=== PATIENT | male | born 1975 | race Caucasian/White ===

== ENCOUNTER 2021-05-02 00:35 | Day surgery (SDC) | payer BC, SELFPAY ==
[2021-04-17 13:28] VITALS: BMI 37.7
[2021-05-02 09:26] VITALS: BP 153/97; PULSE 95; RESP 18; TEMP 36; O2SAT 97; BMI 39.2
[2021-05-02] MEDS: LACTATED RINGERS 1,000 ML 150 ML IV CONT (09:48)
--- NOTE | 2021-05-02 09:48 | P.PNAN_ITS ---
Anes - Initial Pre Proc Eval Procedure: Operation Date: 05/02/21 11:00 Proposed Procedures p Screening Colonoscopy - Ruiz Cherry MD Date/Time: 05/02/21 09:48 Surgeon: Ruiz Cherry MD Pre Op Diagnosis: neoplasm screening Patient Data Age: 45 Gender: M Height: 1.68 m Weight: 110.2 kg Last Vital Signs Temp 36.0 C L 05/02/21 09:26 Pulse 95 05/02/21 09:26 Resp 18 05/02/21 09:26 BP 153/97 H 05/02/21 09:26 Pulse Ox 97 05/02/21 09:26 Allergies Allergy/AdvReac Type Severity Reaction Status Date / Time erythromycin base Allergy Unknown Gastrointestinal Verified 05/02/21 09:40 Upset Home Medications Medication Instructions Recorded Confirmed Type albuterol [Ventolin] 90 mcg INHALATION PRN PRN 04/17/21 05/02/21 History fluticasone propion-salmeterol 1 inh INHALATION BID 04/17/21 05/02/21 History [Wixela Inhub] montelukast 10 mg PO DAILY 04/17/21 05/02/21 History paroxetine HCl 20 mg PO DAILY 04/17/21 05/02/21 History trazodone 50 mg PO DAILY 04/17/21 05/02/21 History Patient hx anesthesia problems: none Family hx anesthesia problems: none Results Review: All pre-operative results and documents have been reviewed as part of the pre-operative evaluation. [facility] Past Medical History Medical History (Updated 05/02/21 @ 09:49 by Rajat Holt MD) Anxiety Asthma Obesity Social History Social History Smoking status: Former smoker Alcohol intake: never Substance use: never Substance use type: does not use Living arrangements: with family Spiritual care concerns: No Anes - Eval Final PreProcedure Day of Procedure 05/02/21 09:48 Patient weight: overweight Heart: regular rate and rhythm Lungs: clear to auscultation and normal air movement Airway: Mallampati scale class II Neurological: alert and oriented Last oral intake: >/= 8 hours ASA classification: II Emergent: no Anesthetic plan: proceed Anesthesia type and monitoring: general GIVS Results Review: All pre-operative results and documents have been reviewed as part of the pre-operative evaluation. Informed Consent: The patient's anesthetic plan and its attendant risks and benefits were discussed with the patient/family/POA. Questions were solicited and answers provided to the satisfaction of the patient/family/POA.
--- NOTE | 2021-05-02 10:20 | PM.HPGS ---
History of Present Illness History of Present Illness Consent: Risks, benefits, and alternatives have been discussed and questions answered. Patient agrees to proceed with procedure. Chief complaint: neoplasm screening Narrative: Steve Shafer is a 45 year old male here for first screening colonoscopy Review of Systems Constitutional: Constitutional: Denies headache(s) and Denies weakness Eyes: Eyes: Denies blurry vision ENT: Reports Normal hearing present, Denies headache(s) and Denies neck pain Cardiovascular: Cardiovascular: Denies chest pain and Denies dyspnea Respiratory: Respiratory: Denies dyspnea Gastrointestinal: Gastrointestinal: Reports no additional gastrointestinal complaints Genitourinary: Genitourinary: Denies dysuria Musculoskeletal: Musculoskeletal: Denies neck pain Integumentary/Breasts: Skin/Breast: Denies dry skin Neurologic: Reports Normal hearing present, Denies headache(s) and Denies weakness Psychiatric: Psychiatric: Denies anxiety Endocrine: Endocrine: Denies change in body appearance Hematologic/Lymphatic: Hematologic/Lymphatic: Denies easy bleeding Allergic/Immunologic: Allergic/Immunologic: Denies urticaria PMF Past Medical History Medical History (Updated 05/02/21 @ 10:20 by Ruiz Cherry MD) Anxiety Asthma Colon cancer screening Obesity Social History Social History Smoking status: Former smoker Alcohol intake: never Substance use: never Substance use type: does not use Living arrangements: with family Spiritual care concerns: No Meds Home Medications and Allergies Home Medications Medication Instructions Recorded Confirmed Type albuterol [Ventolin] 90 mcg INHALATION PRN PRN 04/17/21 05/02/21 History fluticasone propion-salmeterol 1 inh INHALATION BID 04/17/21 05/02/21 History [Wixela Inhub] montelukast 10 mg PO DAILY 04/17/21 05/02/21 History paroxetine HCl 20 mg PO DAILY 04/17/21 05/02/21 History trazodone 50 mg PO DAILY 04/17/21 05/02/21 History Allergies Allergy/AdvReac Type Severity Reaction Status Date / Time erythromycin base Allergy Unknown Gastrointestinal Verified 05/02/21 09:40 Upset Vital Signs Vital Signs - 24 hr 05/02/21 09:26 Temperature 96.8 F L Pulse Rate 95 Respiratory Rate 18 Blood Pressure 153/97 H Pulse Oximetry 97 Exam Const: General: comfortable and no acute distress HENMT: General nose exam: Normal nares present Eyes: General: appearance normal, both eyes and all related structures Neck: Neck: no JVD Resp: Auscultation: clear to auscultation bilaterally Cardio: Rate: regular rate Rhythm: regular rhythm GI: Inspection: non-distended GI Palp: Yes Soft to palpation Skin: General skin exam: normal color Neuro: General: gait normal Speech: normal speech Extrem: General: normal to inspection Psych: Mental Status: mental status grossly normal Assessment and Plan Assessment and plan (1) Colon cancer screening: Code(s): Z12.11 - Encounter for screening for malignant neoplasm of colon Status: Acute Assessment and Plan: colonoscopy
[2021-05-02 10:42] VITALS: BP 125/85; PULSE 89; RESP 14; O2SAT 97
[2021-05-02 10:52] VITALS: BP 125/79; PULSE 88; RESP 24; O2SAT 97
[2021-05-02 11:02] VITALS: BP 133/89; PULSE 75; RESP 24; O2SAT 97
== END 2021-05-02 11:12 | disposition home or self-care (01) ==
PROVIDERS: PCP Family Medicine; Visit Provider Internal Medicine Gastroenterology
PROC: 0DJD8ZZ Inspection of Lower Intestinal Tract, Via Natural or Artificial Opening Endoscopic (ICD-10-PCS; CPT 45378; principal; 2021-05-02 11:00)
DX: Z12.11 Encounter for screening for malignant neoplasm of colon (principal); K63.5 Polyp of colon; K57.30 Diverticulosis of large intestine without perforation or abscess without bleeding; K64.8 Other hemorrhoids; J45.909 Unspecified asthma, uncomplicated; F41.9 Anxiety disorder, unspecified; E66.9 Obesity, unspecified; Z68.39 Body mass index [BMI] 39.0-39.9, adult; Z79.51 Long term (current) use of inhaled steroids; Z87.891 Personal history of nicotine dependence
CPT/HCPCS: 45385; 88305; J2001; J2704; J7120

== ENCOUNTER 2021-09-26 08:12 | Outpatient (CLI) | payer BC, SELFPAY ==
--- NOTE | ~2021-09-26 | CT_ITS ---
EXAMINATION: CT abdomen pelvis w con EXAM DATE: 09/26/2021 08:29 INDICATION: K42.9 - Umbilical hernia without obstruction or gangrene. TECHNIQUE: Spiral CT of the abdomen and pelvis was performed following intravenous injection of 100 m L Omnipaque 350. Axial, coronal and sagittal images of the abdomen and pelvis were reviewed. The do se-length product (DLP) for this examination was 1262.41 mGy-cm. The exposure was tailored according to patient size (auto mA exposure control), and iterative reconstruction (ASIR) was used as addition al dose reduction technique. There is no prior study for comparison. FINDINGS: The liver, spleen, adrenal glands and pancreas are unremarkable. Gallbladder is unremarkab le. No biliary obstruction. Portal and splenic veins are patent. Kidneys enhance symmetrically. T here is no hydronephrosis. The prostate is unremarkable. The bladder is unremarkable. There is no retroperitoneal or pelvic lymphadenopathy. Small umbilical fat-containing hernia. The appendix is normal. The stomach and small bowel are unremarkable. There is expected amount of c olonic stool. No free intraperitoneal gas. The heart is normal in size. There are no pericardial or pleural effusions. The lung bases are unremarkable. There are no osteoblastic or osteolytic les ions identified. IMPRESSION: 1. Small umbilical fat-containing hernia. Reviewed, dictated and finalized at location G.
== END 2021-09-26 08:13 | disposition home or self-care (01) ==
LOC: ANHIMG 08:14
PROVIDERS: PCP Family Medicine; Visit Provider Surgery
DX: K42.9 Umbilical hernia without obstruction or gangrene (principal); R22.2 Localized swelling, mass and lump, trunk
CPT/HCPCS: 74177; Q9967

== ENCOUNTER 2022-06-17 18:30 | Emergency (ER) | payer BC, SELFPAY ==
--- NOTE | ~2022-06-17 | XR_ITS ---
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 Hx asthma Comparison: 11/10/2011. RESULT: Lines, tubes, and devices: None. Lungs and pleura: Clear. Cardiomediastinal silhouette: Stable. Other: No acute osseous or upper abdominal finding. IMPRESSION: No acute cardiopulmonary process. Reviewed, dictated and finalized at location K. RAW STOCK BLOWER FEEDER
[2022-06-17 18:33] VITALS: BP 152/109; PULSE 116; RESP 16; TEMP 36.8; O2SAT 97
[2022-06-17 18:47] LABS: Glucose Point of Care 110 mg/dl (65-105)
--- NOTE | 2022-06-17 19:04 | ED.GENADULT ---
HPI - General Adult General Chief complaint: Unspecified Stated complaint: dizziness, confusion, shaky for 2 months Time Seen by Provider: 06/17/22 18:55 History of Present Illness HPI narrative: 46-year-old male here for evaluation of multiple medical complaints. First, patient states he is hypoglycemic and he has been shaking for the past 4 years. Blood sugar 116 in triage. States that he has had little appetite for the past 4 years due to nausea. Has been worked up by his PCP for these issues and has not found clear etiology for symptoms. Went up on his antidepressant last week. Has been referred to cardiology and saw garage door technician who did not think that his symptoms are related to cardiac issue. Additionally notes a nonproductive cough for the past 2 months. No chest pain, shortness of breath, fevers or chills. Related Data Home Medications Medication Instructions Recorded Confirmed albuterol 90 mcg/actuation aerosol 90 mcg inhalation PRN PRN Dyspnea 04/17/21 09/20/21 inhaler montelukast 10 mg tablet 10 mg PO DAILY 04/17/21 09/20/21 paroxetine HCl 20 mg tablet 20 mg PO DAILY 04/17/21 09/20/21 famotidine 40 mg tablet 40 mg PO DAILY 09/15/21 09/20/21 mometasone-formoterol HFA 200 2 puff inhalation BID 09/15/21 09/20/21 mcg-5 mcg/actuation aerosol inhaler (Dulera) Allergies Allergy/AdvReac Type Severity Reaction Status Date / Time erythromycin base Allergy Unknown Gastrointestinal Verified 09/20/21 09:15 Upset Review of Systems Review of Systems: Gen: Reports shakiness. Denies fevers or chills Eyes: Denies eye pain or visual change ENT: Denies congestion Respiratory: Reports cough. Denies shortness of breath CV: Denies chest pain or palpitations GI: Denies abdominal pain nausea, emesis or diarrhea denies burning, urgency, frequency or hematuria Musculoskeletal: Denies back pain or muscle pain Neuro: Denies numbness, tingling, weakness or focal weakness Skin: Denies rash Except as documented, all other systems reviewed and negative PMFSH Past Medical History Medical History Anxiety Asthma Colon cancer screening Depression Obesity Surgical History Surgical History Inguinal hernia 2005 Family History Family History Other Bladder cancer Cancer Cerebrovascular accident Diabetes mellitus Heart disease Hypertension Social History Social History Smoking packs per day: 1 Smoking cigarettes per day: 20.0 Years smoked: 20 Smoking pack-years: 20.00 Smoking status: Former smoker Tobacco type: cigarettes Alcohol intake: never Substance use: never Substance use type: does not use Additional occupation/education comments: [employer] care concerns: No Exam Narrative: APPEARANCE: No shaking noted. Well appearing, no pain in distress, well-nourished. Head: Normocephalic and atraumatic. EYES: PERRLA/EOMI, conjunctivae clear NOSE: No nasal drainage EARS: External ear normal in appearance THROAT: Oropharynx is clear. Mucous membranes are moist. NECK: Supple. No adenopathy, no masses. RESPIRATORY: Airway patent, respirations nonlabored. Clear to auscultation bilaterally, no rales, rhonchi, wheezing. CARDIOVASCULAR: Regular rate and rhythm without murmurs, rubs, or gallops. ABDOMINAL: No abdominal tenderness to palpation. Normoactive bowel sounds. Soft, nondistended. No rebound tenderness or guarding. MUSCULOSKELETAL: Extremities are warm and well-perfused. Moves all extremities well. No edema. NEURO: Normal speech. No focal neurologic deficits. SKIN: Skin is warm and dry. No rashes. PSYCHIATRIC: Normal affect/mood. Course Vital Signs Vital signs: Vital Signs Temperature 98.3 F 06/17/22 18:33 Pulse Rate 11
[2022-06-17] MEDS: LORazepam (*CRX) 0.5 MG TABLET 0.25 MG PO (19:08)
[2022-06-17 19:30] VITALS: BP 144/89; PULSE 88; RESP 16; TEMP 36.8; O2SAT 97
[2022-06-17 20:04] VITALS: TEMP 36.7
== END 2022-06-17 20:20 | disposition home or self-care (01) ==
PROVIDERS: Emergency Provider Emergency Medicine; PCP Family Medicine
DX: F41.9 Anxiety disorder, unspecified (principal); F32.9 Major depressive disorder, single episode, unspecified; R05.9 Cough, unspecified; Z87.891 Personal history of nicotine dependence
CPT/HCPCS: 71046; 82948; 99283; A9270

== ENCOUNTER 2023-08-17 23:19 | Emergency (ER) | payer BC, SELFPAY ==
--- NOTE | ~2023-08-17 | XR_ITS ---
EXAMINATION: XR chest 1V portable DATE: 08/18/2023 03:19 INDICATION: Dyspnea. TECHNIQUE: A single frontal view of the chest was obtained. COMPARISON: Chest 2 views 06/17/2022, CT abdomen and pelvis 09/26/2021 FINDINGS: There is no pneumonia, pleural effusion, or pneumothorax. The heart size is normal. IMPRESSION: 1. No acute cardiopulmonary disease. Reviewed, dictated and finalized at location A. ILE TECH
[2023-08-17 23:32] VITALS: BP 142/92; PULSE 105; RESP 24; TEMP 36.7; O2SAT 97
[2023-08-18] VITALS (28 sets, daily range): BP systolic 123–144; BP diastolic 63–99; PULSE 76–96; RESP 12–20; O2SAT 94–100
--- NOTE | 2023-08-18 02:37 | ECG_ITS ---
Measurements Intervals [place] Rate: 70 P: 58 SC: 151 QRS: 52 QRSD: 89 T: 72 QT: 377 QTc: 408 Interpretive Statements SINUS RHYTHM NONSPECIFIC T-WAVE ABNORMALITY ABNORMAL ECG NO PREVIOUS ECG AVAILABLE FOR COMPARISON Electronically Signed On 08-18-2023 8:21:52 INSTRUCTOR TAP DANCING by Johnny Rose M.D.
[2023-08-18] MEDS: SODIUM CHLORIDE 0.9% IV 2,000 ML 999 ML IV CONT (02:59)
[2023-08-18] MEDS: MAGNESIUM SULF 2 GM/WATER 50ML 2 GM/50 ML BAG IVPB (03:00)
[2023-08-18] MEDS: IPRATROPIUM BR 0.02% INH SOLN 0.5 MG/2.5 ML VIAL 1 MG INHALATION (03:02)
[2023-08-18] MEDS: ALBUTEROL SULFATE NEB 2.5 MG/3 ML INH 10 MG INHALATION (03:02)
--- NOTE | 2023-08-18 03:52 | ED.GENADULT ---
HPI - General Adult General Chief complaint: Shortness of Breath/Dyspnea Stated complaint: asthma Time Seen by Provider: 08/18/23 02:07 History of Present Illness HPI narrative: This is a 47-year-old male with history of asthma presenting with shortness of breath. 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 Then earlier today he was helping his parents move in a eliud house. He has had progressively worse tightness in his chest. Releases to his asthma. He has been taking his inhalers with no relief. No other complaints. Related Data Home Medications Medication Instructions Recorded Confirmed albuterol 90 mcg/actuation aerosol 90 mcg inhalation PRN PRN Dyspnea 04/17/21 09/20/21 inhaler montelukast 10 mg tablet 10 mg PO DAILY 04/17/21 09/20/21 paroxetine HCl 20 mg tablet 20 mg PO DAILY 04/17/21 09/20/21 famotidine 40 mg tablet 40 mg PO DAILY 09/15/21 09/20/21 mometasone-formoterol HFA 200 2 puff inhalation BID 09/15/21 09/20/21 mcg-5 mcg/actuation aerosol inhaler (Dulera) Allergies Allergy/AdvReac Type Severity Reaction Status Date / Time erythromycin base Allergy Unknown Gastrointestinal Verified 09/20/21 09:15 Upset PMFSH Past Medical History Medical History Anxiety Asthma Colon cancer screening Depression Obesity Surgical History Surgical History Inguinal hernia 2005 Family History Family History Other Bladder cancer Cancer Cerebrovascular accident Diabetes mellitus Heart disease Hypertension Social History Social History Smoking packs per day: 1 Smoking cigarettes per day: 20.0 Years smoked: 20 Smoking pack-years: 20.00 Smoking status: Former smoker Tobacco type: cigarettes Alcohol intake: never Substance use: never Substance use type: does not use Living arrangements: alone Occupation/Education: occupation Additional occupation/education comments: [employer] Spiritual care concerns: No Exam Narrative: APPEARANCE: No apparent distress. Head: atraumatic. EYES: EOMI, NOSE: Atraumatic NECK: Trachea midline RESPIRATORY: speaking in full sentences, mildly decreased air flow in all yañez CARDIOVASCULAR: RRR, ABDOMINAL: Non-distended MUSCULOSKELETAl: No obvious deformities NEURO: Alert. Moving 4/4 extremities SKIN:: Warm, dry. Normal color PSYCHIATRIC: Normal affect Course Vital Signs Vital signs: Vital Signs Temperature 98.1 F 08/17/23 23:32 Pulse Rate 105 H 08/17/23 23:32 Respiratory Rate 24 H 08/17/23 23:32 Blood Pressure 142/92 H 08/17/23 23:32 Pulse Oximetry 97 08/17/23 23:32 Oxygen Delivery Room Air 08/17/23 23:32 Temperature 98.1 F 08/17/23 23:32 Pulse Rate 86 08/18/23 03:34 Respiratory Rate 16 08/18/23 03:31 Blood Pressure 136/82 08/18/23 03:34 Pulse Oximetry 97 08/18/23 03:34 Oxygen Delivery Room Air 08/18/23 02:50 Medical Decision Making [facility] Narrative Medical decision making narrative: -Course: 47-year-old male presenting asthma exacerbation. Treated with DuoNeb, steroids, magnesium. Improved. Patient discharged with return precautions. -DDX includes but is not limited to: Asthma exacerbation, environmental -Co-morbidities complicating care: asthma, anxiety -Independent interpretation of studies: chest x-ray normal. Independent EKG interpretation: Rhythm [sinus], Rate [70], [place] -[normal], [place] -[normal], QRS [narrow], QTC [normal], T waves -[negative for concerning inversions], ST Segments - [Negative for concerning elevations] Final interpretations: [Normal Sinus Rhythm] -Interventions: 1 hour DuoNeb treatment, L normal saline, 2 g magnesium, 10 mg dexamethasone -Shared decision making / Disposition: discharged Vital Signs
--- NOTE | 2023-08-18 04:41 | PC.NURSE ---
1,600/2,000 ml infused for NaCl infusion with a waste of 400 ml. Patient requested discharge papers stating his ride was outside waiting for him.
== END 2023-08-18 04:45 | disposition home or self-care (01) ==
LOC: ANHED 08-18 04:11
PROVIDERS: Emergency Provider Emergency Medicine; PCP Family Medicine
DX: J45.909 Unspecified asthma, uncomplicated (principal); F41.9 Anxiety disorder, unspecified; F32.A Depression, unspecified; Z87.891 Personal history of nicotine dependence
CPT/HCPCS: 71045; 93005; 94640; 96361; 96365; 96372; 99284; J1100; J3475; J7030

== ENCOUNTER 2023-09-12 06:48 | Emergency (ER) | payer BC, SELFPAY ==
[2023-09-12] VITALS (12 sets, daily range): BP systolic 114–141; BP diastolic 66–91; PULSE 85–121; RESP 13–34; TEMP 36.6; O2SAT 93–100
--- NOTE | ~2023-09-12 | XR_ITS ---
Portable chest x-ray Comparison: 08/18/2023 Clinical History: Shortness of breath Findings: Lungs are clear, without focal consolidation or pleural effusion. Cardiomediastinal silho uette is stable. Bones and soft tissues are unremarkable. Impression: Normal chest. Reviewed, dictated and finalized at location . NG PRESSMAN Impression: Normal chest.
--- NOTE | 2023-09-12 06:53 | ECG_ITS ---
Measurements Intervals [place] Rate: 99 P: 58 MO: 151 QRS: 38 QRSD: 89 T: 53 QT: 335 QTc: 432 Interpretive Statements SINUS RHYTHM NONSPECIFIC ST-T WAVE ABNORMALITY- LATERAL LEADS BORDERLINE ECG COMPARED TO ECG 08/18/2023 02:50:59 NO SIGNIFICANT CHANGES Electronically Signed On 09-12-2023 10:38:04 COMPUTATIONAL LINGUIST by Hernandez Walton D.O.
[2023-09-12 07:10] LABS: Basophils Percent Auto 0.3 % (0.2-1.2); Eosinophils Absolute Auto 0.2 K/mm3 (0-0.3); Eosinophils Percent Auto 1.5 % (0-4.4); Hematocrit 48.3 % (42.0-52.0); Hemoglobin 16.2 g/dL (14.0-18.0); Immature Granulocyte Absolute 0.03 K/mm3 (0.00-0.031); Immature Granulocyte Percent A 0.3 % (0-0.5); Lymphocytes Absolute Auto 1.96 K/mm3 (0.9-3.2); Lymphocytes Percent Auto 19.9 % (18.3-44.2); Mean Corpuscular HGB Conc 33.5 g/dl (32-36); Mean Corpuscular Hemoglobin 27.5 pg (26-34); Mean Corpuscular Volume 81.9 fl (80-100); Mean Platelet Volume 9.5 fl (7.4-10.4); Monocytes Absolute Auto 0.7 K/mm3 (0.1-0.6); Monocytes Percent Auto 6.9 % (2.6-8.5); Neutrophils Percent Auto 71.1 % (45.5-73.1); Platelet Count Result 210 k/mm3 (150-375); Red Cell Distribution Width 13.5 % (11.5-14.5); White Blood Count 9.9 K/mm3 (4.5-10.0)
--- NOTE | 2023-09-12 07:11 | ED.ASTHMA ---
HPI - Asthma General Chief Complaint: Asthma Stated Complaint: dyspnea Time Seen by Provider: 09/12/23 06:58 History of Present Illness HPI Narrative: Patient is a 47-year-old male with history of asthma, anxiety here with shortness of breath and chest pain. Patient states yesterday he had the appointment with his primary care doctor and is feeling quite well. Overnight last night he began having significant shortness of breath. He notes that it feels like his chest is quite tight and has difficulty moving air. This feels very similar to prior asthma exacerbations in the past. He notes he took 4 of his nebulizer treatments at home as well as his morning daily inhalers without relief of his symptoms which prompted him to come into the emergency department. Of note about 1 month ago he was seen here in this department for similar, treated with a course of steroids and was discharged home feeling quite well. He did note that he had improving symptoms in between each exacerbation. He denies any fever or chills. Denies any increased sputum production. He has previously followed with a local bench machine operator but is being transferred to a new bench machine operator due to change in his insurance coverage at his prior clinic. No known sick contacts. No prior history of PE or DVT. No prior cardiac history. No recent travel, long car rides, calf pain, leg swelling. Related Data Home Medications Medication Instructions Recorded Confirmed albuterol 90 mcg/actuation aerosol 90 mcg inhalation PRN PRN Dyspnea 04/17/21 09/20/21 inhaler montelukast 10 mg tablet 10 mg PO DAILY 04/17/21 09/20/21 paroxetine HCl 20 mg tablet 20 mg PO DAILY 04/17/21 09/20/21 famotidine 40 mg tablet 40 mg PO DAILY 09/15/21 09/20/21 mometasone-formoterol HFA 200 2 puff inhalation BID 09/15/21 09/20/21 mcg-5 mcg/actuation aerosol inhaler (Dulera) Allergies Allergy/AdvReac Type Severity Reaction Status Date / Time erythromycin base Allergy Unknown Gastrointestinal Verified 09/20/21 09:15 Upset Review of Systems Review of Systems: All systems reviewed & are unremarkable except as noted in HPI and below PMFSH Past Medical History Medical History Anxiety Asthma Colon cancer screening Depression Obesity Surgical History Surgical History Inguinal hernia 2005 Family History Family History Other Bladder cancer Cancer Cerebrovascular accident Diabetes mellitus Heart disease Hypertension Social History Social History Smoking packs per day: 1 Smoking cigarettes per day: 20.0 Years smoked: 20 Smoking pack-years: 20.00 Smoking status: Former smoker Tobacco type: cigarettes Alcohol intake: never Substance use: never Substance use type: does not use Living arrangements: alone Occupation/Education: occupation Additional occupation/education comments: [employer] care concerns: No Exam Narrative: GENERAL: Well-appearing, well-nourished, and in no acute distress. HEAD: Normocephalic, atraumatic. EYES: PERRLA and EOMI. ENT: Nares clear. Mucous membranes moist. NECK: Supple. CHEST: Shallow respirations, decreased air movement bilaterally, 4-5 word dyspnea. Faint wheeze present bilaterally. HEART: Regular rate and rhythm. Normal peripheral pulses. ABDOMEN: Soft, nontender, nondistended. EXTREMITIES: Normal range of motion. No edema. No calf tenderness. SKIN: Warm, dry, no rash. NEURO: No focal deficits. Alert and oriented x3. PSYCH: Normal mood and affect. Course Course Emergency Course: Chart review performed. Patient here with chest tightness and difficulty breathing x2 months, worse this morning. Reportedly took albuterol nebulizer, Dulera, albuterol rescue inhaler 4 times and Sy
[2023-09-12 07:19] LABS: Alanine Aminotransferase 21 U/L (6-50); Albumin Level 4.7 g/dL (3.5-5.1); Alkaline Phosphatase 119 U/L (38-126); Anion Gap 8 mmol/L (8-16); Aspartate Amino Transferase 26 U/L (17-59); Blood Urea Nitrogen 9 mg/dL (9-20); Calcium 9.2 mg/dL (8.4-10.2); Carbon Dioxide 23 mmol/L (22-30); Chloride 105 mmol/L (98-107); Estimated CRCL calculation 84 ml/min; Estimated Glomerular Filt Rate > 60; Glucose 113 mg/dL (65-110); Potassium 3.5 mmol/L (3.4-5.0); Sodium 136 mmol/L (137-145)
--- NOTE | 2023-09-12 07:29 | PC.NURSE ---
Bedside report to AUSTEN Crum.
[2023-09-12 07:46] LABS: Influenza A QL RT-PCR Negative (Negative); Influenza B QL RT-PCR Negative (Negative); RSV RNA, RT-PCR Negative (Negative); SARS-CoV-2 RNA PCR Negative (Negative)
[2023-09-12] MEDS: SODIUM CHLORIDE 0.9% IV 1,000 ML 999 ML IV CONT (07:55)
[2023-09-12] MEDS: methylPREDNISolone SOD SUCC 125 MG VIAL IV PUSH (07:55)
[2023-09-12] MEDS: IPRATROPIUM BR 0.02% INH SOLN 0.5 MG/2.5 ML VIAL 1.5 MG INHALATION (08:03)
[2023-09-12] MEDS: ALBUTEROL SULFATE NEB 2.5 MG/3 ML INH 15 MG INHALATION (08:03)
[2023-09-12] MEDS: MAGNESIUM SULF 2 GM/WATER 50ML 2 GM/50 ML BAG IVPB (09:24)
--- NOTE | 2023-09-12 09:35 | ECG_ITS ---
Measurements Intervals [place] Rate: 114 P: 72 DC: 150 QRS: 69 QRSD: 83 T: 17 QT: 312 QTc: 431 Interpretive Statements SINUS TACHYCARDIA DELAYED PRECORDIAL R/S TRANSITION NONSPECIFIC ST-T WAVE ABNORMALITY- INF/LAT LEADS ABNORMAL ECG COMPARED TO ECG 08/18/2023 02:50:59 SINUS TACHYCARDIA NOW PRESENT Electronically Signed On 09-13-2023 14:42:44 TYPE SOLDERING MACHINE TENDER by Hernandez Walton D.O.
[2023-09-12 09:45] LABS: NT Pro B Type Natriuretic Pept 36 pg/mL (19.9-100); Troponin I < 0.012 ng/mL (0.000-0.034)
[2023-09-12 10:56] LABS: D Dimer < 0.27 ug/mL (<0.48)
[2023-09-12 11:05] LABS: Troponin I < 0.012 ng/mL (0.000-0.034)
== END 2023-09-12 12:19 | disposition home or self-care (01) ==
PROVIDERS: Emergency Medicine; Emergency Provider Student in an Organized Health Care Education/Training Program; PCP Family Medicine
DX: J45.901 Unspecified asthma with (acute) exacerbation (principal); F41.9 Anxiety disorder, unspecified; F32.A Depression, unspecified; Z87.891 Personal history of nicotine dependence; Z20.822 Contact with and (suspected) exposure to COVID-19
CPT/HCPCS: 36415; 71045; 80053; 83880; 84484; 85025; 85380; 87637; 93005; 94640; 96361; 96365; 96366; 96375; 99284; J2930; J3475; J7030

== ENCOUNTER 2024-12-21 23:38 | Emergency (ER) | payer BC, SELFPAY ==
--- NOTE | ~2024-12-21 | CT_ITS ---
Non-contrast Head CT History: Headache Technique: Axial non-contrast imaging of the brain was performed. Dose reduction technique was used on this scan by utilizing automated exposure control and iterative reconstruction technique. The dose -length product (DLP) was 681.00 mGy-cm. Findings: There is no evidence of intracranial hemorrhage, mass lesion, or acute infarct. Brain par enchyma appears normal. The ventricles and subarachnoid spaces are normal in size. The calvarium ap pears normal. Mild left sphenoid sinus disease present. The remaining visualized paranasal sinuses an d mastoid air cells are clear. Impression: No intracranial abnormality seen. Mild left sphenoid sinus disease. Reviewed, dictated and finalized at location . Impression: No intracranial abnormality seen. Mild left sphenoid sinus disease.
[2024-12-21 23:42] VITALS: BP 147/97; PULSE 101; RESP 15; TEMP 36.1; O2SAT 100
--- OUTSIDE RECORDS SUMMARY | 2024-12-21 23:42 | XMS_ITS | Data Portability ---
Author Organization [place] - S author[facility], Main Office Address [address] [place] [address] Assessment No assessment recorded. Plan of Treatment Reminders Order Date Submit Date Provider Last Modified By Organization Details Last Modified Time Details Appointments Follow Up 20 2024 03:20P Melquiades Calles NP Not available Not available Not available Lab glycohemo globin, total, blood 2024 025 [facility] (Lab), [address] [place], [address], 12/15/2024 08:30:56 CMP, serum or plasma 2024 025 [facility] (Lab), [address] [place], [address], 12/15/2024 08:30:57 lipid panel, serum 2024 025 [facility] (Lab), [address] [place], [address], 12/08/2024 15:09:29 vitamin D, 25-hydrox y, total, serum 2024 025 [email or web address] [facility] (Lab), [address] [place], [address], 12/08/2024 20:46:43 CBC w/ auto diff 2024 025 [email or web address] [facility] (Lab), [address] [place], [address], 12/08/2024 15:09:29 HbA1c (hemoglob in A1c), blood 2023 024 [email or web address] Not available 09/13/2023 12:21:59 BMP, serum or plasma 2023 024 [email or web address] Not available 09/11/2023 16:34:48 CBC w/ auto diff 2023 024 [email or web address] Not available 09/11/2023 16:35:41 BMP, serum or plasma 2023 024 [email or web address] Not available 09/13/2023 12:21:59 lipid panel, serum 2023 024 [email or web address] Not available 09/11/2023 16:35:07 hepatic function panel, serum 2023 024 [email or web address] Not available 09/11/2023 16:35:[address] referral - Please call patient to schedule an appointme nt. Thank you. 2024 025 ATHENAFAX [facility] Neurology, [address] [facility], [facility] [address], [place], [address], 12/16/2024 15:03:[address] referral 2023 024 [email or web address] Pancho Smith MD, [address] [facility], [facility], [place], [address], 06/26/2024 09:22:42 pulmonolo gist referral - Please call patient to schedule an appointme nt with Dr. Sales. 2023 024 [email or web address] [facility], [address] [place] [address], [address], [place], [address], 10/10/2023 09:02:30 Procedures None recorded. Surgeries None recorded. Imaging None recorded. Medication Orders monteluka st 10 mg tablet 2024 025 [email or web address] [facility] [address], [address], [place], [address], 12/08/2024 15:09:28 Dulera 200 mcg-5 mcg/actua tion HFA aerosol inhaler 2022 023 [email or web address] 77 [facility] [address]25, [address], [place], [address], 09/11/2023 15:22:53 Spiriva Respimat 2.5 mcg/actua tion solution for inhalatio n 2022 023 [email or web address] 77 [facility] [address]25, [address], [place], [address], 09/11/2023 15:22:38 albuterol sulfate HFA 90 mcg/actua tion aerosol inhaler 2022 023 [email or web address] 77 [facility] [address], [address], [place], [address], 09/11/2023 15:22:59 Patient TargetsNo targets recorded. Patient InstructionsNo instructions recorded. 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 Sales. Referring Physician: Jodi Diaz, Family Medicine, Encounter Date: 09/11/2023 Neurologist Referral for Res ting tremor tremors, RLS, headaches Referring Physician: Alexys Cooper Family Medicine, Encounter Date: 03/10/2024 Neurologist Referral for John mor Please call patient to schedule an appointment. Thank you. Referring Physician: Barbara Matias, Family Medicine, Encounter Date: 12/08/2024 Results Created Date Observation Date Name Description Value Unit Range Abnormal Flag Note LastModifiedBy Organization Detail LastModifiedTime 09/11/19 24 09/11/2023 BASIC METAB OLIC PANEL sodium 139 mmol/ L 137-14 5 Not Available [facility] (Lab) [address] [place], [address], 09/11/2023 20:11:44 09/11/19 24 09/11/2023 BASIC METAB OLIC PANEL potassium 3.9 mmol/ L 3.5-5. 1 Not Available [facility] (Lab) [address] [place], [address], 09/11/2023 20:11:44 09/11/19 24 09/11/2023 BASIC METAB OLIC PANEL chloride 104 mmol/ L 98-107 Not Available [facility] (Lab) [address] [place], [address], 09/11/2023 20:11:44 09/11/19 24 09/11/2023 BASIC METAB OLIC PANEL carbon dioxide 31 mmol/ L 22-30 high Not Available [facility] (Lab) [address] [place], [address], 09/11/2023 20:11:44 09/11/19 24 09/11/2023 BASIC METAB OLIC PANEL anion gap 7.9 mmol/ L 14-22 low Not Available [facility] (Lab) [address] [place], [address], 09/11/2023 20:11:44 09/11/19 24 09/11/2023 BASIC METAB OLIC PANEL glucose 93 mg/dL 70-99 Not Available [facility] (Lab) [address] [place], [address], 09/11/2023 20:11:44 09/11/19 24 09/11/2023 BASIC METAB OLIC PANEL BUN 9 mg/dL 8-19 Not Available [facility] (Lab) [address] [place], [address], 09/11/2023 20:11:44 09/11/19 24 09/11/2023 BASIC METAB OLIC PANEL creatinine 1.04 mg/dL 0.66-1 .25 Not Available [facility] (Lab) [address] [place], [address], 09/11/2023 20:11:44 09/11/19 24 09/11/2023 BASIC METAB OLIC PANEL GFR >60 Refer ence Range : [place] ge GFR Healt hy Adult : >60 mL/mi n/1.7 3 m2 Chron ic Kidne y Disea se: 15-60 mL/mi n/1.7 3 m2 Kidne y Failu re: <15/m L/min /1.73 m2 www.n iddk. nih.g ov The MDRD study equat ion has not been valid ated in child gerard <18 years of age; pregn ant women ; the elder ly >85 years of age; or in some racia l or ethni c subgr oups, such as Kesha nics. Outsi de the valid ated june eters , estim ated GFR is less accur ate, requi ring clini colt judgm ent on a case- by-ca se basis . Clini colt inter preta tion for other races and ages must be made by the clini jamal. The MDRD study equat ion has not been valid ated for the evalu ation of serum creat inine relat ed to nutri jermaine l statu s or medic ation usage . For perso ns <18 years of age, a pedia tric GFR calcu lator is avail able on the [facility] websi te: https ://[place].bryan nur.o rg/pr ofess ional s/kdo qi/gf r_cal culat or Not Available [facility] (Lab) [address] [place], [address], 09/11/2023 20:11:44 09/11/19 24 09/11/2023 BASIC METAB OLIC PANEL calcium 9.4 mg/dL 8.4-10 .2 Not Available [facility] (Lab) [address] [place], [address], 09/11/2023 20:11:44 09/11/19 24 09/11/2023 LIPID PANEL cholesterol 179 mg/dL 140-19 9 NIH MARLA NSUS RECOM MENDA TION FOR ELENI STERO L: ADULT CHILD LOW RISK: <200 <170 BORDE RLINE : <200- 239 ----- HIGH RISK: >240 >200 Not Available [facility] (Lab) [address] [place], [address], 09/11/2023 20:11:49 09/11/19 24 09/11/2023 LIPID PANEL triglyceride s 216 mg/dL 0-150 high NIH MARLA NSUS REPOR T RECOM MENDA TION FOR TRIGL YCERI ARIAN: ADULT CHILD LOW RISK: <150 ----- BODER LINE: 150-1 99 ----- HIGH RISK: >200 ----- Not Available [facility] (Lab) [address] [place], [address], 09/11/2023 20:11:49 09/11/19 24 09/11/2023 LIPID PANEL HDL cholesterol 38 mg/dL 40- low Not Available [facility] (Lab) [address] [place], [address], 09/11/2023 20:11:49 09/11/19 24 09/11/2023 LIPID PANEL LDL cholesterol, calculated 98 mg/dL 0-130 NIH MARLA NSUS REPOR T RECOM MENDA TIONS FOR LDL: ADULT CHILD LOW RISK <130 <110 (OPTI MAL LDL) <100 ----- BORDE RLINE : 130-1 59 ----- HIGH RISK: >160 >130 A TRIGL YCERI DE RESUL T >400 INVAL IDATE S THE CALCU LATIO N FOR LDL FRACT IONAT ION - THE LDL RESUL T WILL NOT BE REPOR HUY. Not Available [facility] (Lab) [address] [place], [address], 09/11/2023 20:11:49 09/11/19 24 09/11/2023 HEPAT IC/LI TAMIKA PANEL alkaline phosphatase 134 U/L 38-126 high Not Available [facility] (Lab) [address] [place], [address], 09/11/2023 20:11:59 09/11/19 24 09/11/2023 HEPAT IC/LI TAMIKA PANEL alanine aminotransfe rase 19 U/L 0-50 Not Available [facility] (Lab) [address] [place], [address], 09/11/2023 20:11:59 09/11/19 24 09/11/2023 HEPAT IC/LI TAMIKA PANEL aspartate aminotransfe rase 22 U/L 15-46 Not Available [facility] (Lab) [address] [place], [address], 09/11/2023 20:11:59 09/11/19 24 09/11/2023 HEPAT IC/LI TAMIKA PANEL bilirubin, total 0.60 mg/dL 0.20-1 .30 Not Available [facility] (Lab) [address] [place], [address], 09/11/2023 20:11:59 09/11/19 24 09/11/2023 HEPAT IC/LI TAMIKA PANEL bilirubin, conjugated (direct) 0.00 mg/dL 0.00-0 .30 Not Available [facility] (Lab) [address] [place], [address], 09/11/2023 20:11:59 09/11/19 24 09/11/2023 HEPAT IC/LI TAMIKA PANEL biliurubin,u ncong. (indirect) 0.40 mg/dL 0.00-1 .1 Not Available [facility] (Lab) [address] [place], [address], 09/11/2023 20:11:59 09/11/19 24 09/11/2023 HEPAT IC/LI TAMIKA PANEL total protein 7.1 g/dL 6.3-8. 2 Not Available [facility] (Lab) [address] [place], [address], 09/11/2023 20:11:59 03/06/20 24 09/11/2023 HEPAT IC/LI TAMIKA PANEL albumin 4.3 g/dL 3.4-5. 0 Not Available [facility] (Lab) [address] [place], [address], 09/11/2023 20:11:59 09/11/19 24 09/11/2023 HEPAT IC/LI TAMIKA PANEL globulin 2.8 g/dL 2.6-4. 2 Not Available [facility] (Lab) [address] [place], [address], 09/11/2023 20:11:59 09/11/19 24 09/11/2023 HEPAT IC/LI TAMIKA PANEL A/G ratio 1.5 ratio 1.0-2. 0 Not Available [facility] (Lab) [address] [place], [address], 09/11/2023 20:11:59 09/11/19 24 09/11/2023 CBC/C OMPLE TE BLD COUNT W/DIF F white blood cells 7.6 x10'3 /uL 4.2-10 .8 Not Available [facility] (Lab) [address] [place], [address], 09/11/2023 20:17:43 09/11/19 24 09/11/2023 CBC/C OMPLE TE BLD COUNT W/DIF F red blood cells 5.41 x10'6 /uL 4.10-5 .80 Not Available [facility] (Lab) [address] [place], [address], 09/11/2023 20:17:43 09/11/19 24 09/11/2023 CBC/C OMPLE TE BLD COUNT W/DIF F hemoglobin 15.3 g/dL 13.2-1 7.0 Not Available [facility] (Lab) [address] [place], [address], 09/11/2023 20:17:43 09/11/19 24 09/11/2023 CBC/C OMPLE TE BLD COUNT W/DIF F hematocrit 45.4 % 39.3-5 0.0 Not Available [facility] (Lab) [address] [place], [address], 09/11/2023 20:17:43 09/11/19 24 09/11/2023 CBC/C OMPLE TE BLD COUNT W/DIF F mean red cell volume 83.9 fL 80.0-9 7.0 Not Available [facility] (Lab) [address] [place], [address], 09/11/2023 20:17:43 09/11/19 24 09/11/2023 CBC/C OMPLE TE BLD COUNT W/DIF F mean red cell hemoglobin 28.3 pg 27.0-3 3.0 Not Available [facility] (Lab) [address] [place], [address], 09/11/2023 20:17:43 09/11/19 24 09/11/2023 CBC/C OMPLE TE BLD COUNT W/DIF F mean RBC HGB concentratio n 33.7 g/dL 31.0-3 6.0 Not Available [facility] (Lab) [address] [place], [address], 09/11/2023 20:17:43 09/11/19 24 09/11/2023 CBC/C OMPLE TE BLD COUNT W/DIF F red cell distribution width 13.5 % 11.8-1 5.5 Not Available [facility] (Lab) [address] [place], [address], 09/11/2023 20:17:43 09/11/19 24 09/11/2023 CBC/C OMPLE TE BLD COUNT W/DIF F platelets 214 x10'3 /uL 150-40 0 Not Available [facility] (Lab) [address] [place], [address], 09/11/2023 20:17:43 09/11/19 24 09/11/2023 CBC/C OMPLE TE BLD COUNT W/DIF F mean platelet volume 10.0 fL 9.0-12 .4 Not Available [facility] (Lab) [address] [place], [address], 09/11/2023 20:17:43 09/11/19 24 09/11/2023 CBC/C OMPLE TE BLD COUNT W/DIF F neutrophils 69.2 % 39.0-7 2.0 Not Available [facility] (Lab) [address] [place], [address], 09/11/2023 20:17:43 09/11/19 24 09/11/2023 CBC/C OMPLE TE BLD COUNT W/DIF F lymphocytes 19.9 % 16.0-4 7.0 Not Available [facility] (Lab) [address] [place], [address], 09/11/2023 20:17:43 09/11/19 24 09/11/2023 CBC/C OMPLE TE BLD COUNT W/DIF F monocytes 7.1 % 5.0-12 .0 Not Available [facility] (Lab) [address] [place], [address], 09/11/2023 20:17:43 09/11/19 24 09/11/2023 CBC/C OMPLE TE BLD COUNT W/DIF F eosinophils 3.0 % 1.0-7. 0 Not Available [facility] (Lab) [address] [place], [address], 09/11/2023 20:17:43 09/11/19 24 09/11/2023 CBC/C OMPLE TE BLD COUNT W/DIF F basophils 0.5 % 0.0-2. 0 Not Available [facility] (Lab) [address] [place], [address], 09/11/2023 20:17:43 09/11/19 24 09/11/2023 CBC/C OMPLE TE BLD COUNT W/DIF F immature granulocytes 0.3 % 0.00-0 .50 Not Available [facility] (Lab) [address] [place], [address], 09/11/2023 20:17:43 09/11/19 24 09/11/2023 CBC/C OMPLE TE BLD COUNT W/DIF F neutrophils, absolute count 5.29 x10'3 /uL 1.5-8. 0 Not Available [facility] (Lab) [address] [place], [address], 09/11/2023 20:17:43 09/11/19 24 09/11/2023 CBC/C OMPLE TE BLD COUNT W/DIF F lymphocytes, absolute count 1.52 x10'3 /uL 1.07-3 .43 Not Available [facility] (Lab) [address] [place], [address], 09/11/2023 20:17:43 09/11/19 24 09/11/2023 CBC/C OMPLE TE BLD COUNT W/DIF F monocytes, absolute count 0.54 x10'3 /uL 0.29-0 .99 Not Available [facility] (Lab) [address] [place], [address], 09/11/2023 20:17:43 09/11/19 24 09/11/2023 CBC/C OMPLE TE BLD COUNT W/DIF F eosinophils, absolute count 0.23 x10'3 /uL 0.02-0 .53 Not Available [facility] (Lab) [address] [place], [address], 09/11/2023 20:17:43 09/11/19 24 09/11/2023 CBC/C OMPLE TE BLD COUNT W/DIF F basophils, absolute count 0.04 x10'3 /uL 0.01-0 .08 Not Available [facility] (Lab) [address] [place], [address], 09/11/2023 20:17:43 09/11/19 24 09/11/2023 CBC/C OMPLE TE BLD COUNT W/DIF F immature granulocytes ,absolute 0.02 x10'3 /uL 0.00-0 .05 Not Available [facility] (Lab) [address] [place], [address], 09/11/2023 20:17:43 09/11/19 24 09/11/2023 CBC/C OMPLE TE BLD COUNT W/DIF F nucleated red blood cells 0.0 % -0 Not Available [facility] (Lab) [address] [place], [address], 09/11/2023 20:17:43 09/11/19 24 09/11/2023 CBC/C OMPLE TE BLD COUNT W/DIF F NRBC# 0.00 x10'3 /uL Not Available [facility] (Lab) [address] [place], [address], 09/11/2023 20:17:43 09/11/19 24 09/11/2023 HEMOG LOBIN A1C HA1C 5.1 % 4.0-6. 0 Diabe nina Scree giancarlo Crite xochilt: <5.7% Consi stent with absen ce of diabe nina 5.7-6 .4% Consi stent with incre ased risk for diabe nina (pred iabet es) >OR=6 .5% Consi stent with diabe nina REFER ENCE: Diabe nina Care 2016, 39(Augustin ppl.1 ):s13 -s22 Not Available [facility] (Lab) [address] [place], [address], 09/11/2023 21:47:29 08/18/19 24 08/18/2023 XR, chest No observ ation record ed. [email or web address] [place] [id number] [facility] [address] [place] [address], [place], [address], 08/20/2023 13:28:20 09/12/19 24 09/12/2023 XR, chest No observ ation record ed. [place] [id number] [facility] [address] [place] [address], [place], [address], 11/17/2023 13:52:20 Result Notes None recorded. Problems Name Problem SNOMED Code Status Onset Date Resolution Date Notes Provider Name and Address Organization Details Recorded Time Hyperactiv e pharyngeal gag reflex 4816592597820 06 Active 2022 Jodi Diaz MD [address], [address], [place], [address] , [employer] 16:27:07 Anxiety 56507590 Active 2022 Jodi Diaz MD [address], [address] [facility], [place], [address] , [employer] 16:29:03 Restlessne ss and agitation 143063039 Active 2022 Jodi Diaz MD [address], [address], [place], [address] , [employer] 3 16:32:57 Heartburn 87741374 Active 2022 Jodi Diaz MD [address], [address], [place], [address] , [employer] 3 16:13:19 Acute sinusitis 01623726 Active 2021 Not Available [facility] 3 02:56:15 Asthma 413679436 Active 2017 Not Available [employer] 3 02:56:15 Mixed sleep apnea 715129895 Active 2021 Not Available [employer] 3 02:56:15 Tremor 53758801 Active 2022 Not Available [employer] 3 02:56:15 Hypoglycem ia 741859401 Active 2017 Not Available [employer] 3 02:56:15 Depressive disorder 30302411 Active 2017 Not Available [facility] 3 02:56:16 Umbilical hernia 592911719 Active 2017 Not Available [facility] 3 02:56:16 Body mass index 40+ - severely obese 610563954 Active 2021 Not Available [facility] 3 02:56:16 Hoarse 85912551 Active 2020 Not Available [facility] 3 02:56:16 Acute upper respirator y infection 12103503 Active 2021 Not Available [facility] 3 02:56:16 Prediabete s 998121925 Active 2017 Not Available [facility] 3 02:56:16 Chronic insomnia 927946264 Active 2021 Not Available [facility] 3 02:56:16 Obstructiv e sleep apnea syndrome 41763458 Active 2021 Not Available [facility] 3 02:56:17 Fatigue 03044529 Active 2021 Not Available [facility] 3 02:56:17 Mass of soft tissue 091029501 Active 2022 Eugene hinojosa MD [address], [address], [place], [address] , [facility] [employer] 3 14:52:28 Exacerbati on of moderate persistent asthma 796654140 Active 2022 PAUL Still- [address], [address], [place], [address] , [facility] [employer] 3 16:35:21 Visual disturbanc e 23304311 Active 2022 Jodi Diaz MD [address], [address], [place], [address] , [facility] [employer] 3 15:54:02 Muscle pain 86119673 Active 2022 Jodi Diaz MD [address], [address], [place], [address] , [employer] 3 18:14:55 Hyperlipid emia 29479078 Active 2023 Jodi Diaz MD [address], [place] [address], [place], [address] , [employer] 4 15:49:17 Essential hypertensi on 83113991 Active 2023 Jodi Diaz MD [address], [place] [address], [place], [address] , [employer] 4 15:49:26 Resting tremor 81890144 Active [address] [facility], [place] [address], [place], [address] , [employer] 4 14:10:33 Asthma - currently active 490221476 Active 2024 RAGHU Lima [address], [place] [address], [place], [address] , [employer] 5 14:51:42 Body mass index 30+ - obesity 822882719 Active 2024 RAGHU Lima [address], [place] [address], [place], [address] , [employer] 5 15:11:07 Vitamin D deficiency 31664570 Active 2024 RAGHU Lima [address], [place] [address], [place], [address] , [employer] 5 10:53:10 Problem Notes None recorded. Procedures Surgical History Date Name Laterality Status Provider Name and Address Organization Details Recorded Time 3 Hernia Surgery completed Rody Wilks MA [employer] [facility] authorGEN 11/02/2022 09:35:12 Imaging Results None recorded. Procedure Notes None recorded. Medical Equipment None Reported. Allergies Allergen ID Allergen Name Allergen Category Reaction Reaction Severity Criticality Documentation Date Start Date Code Code System Note Provider Name and Address Organization Details Recorded Time 5532 erythromy marce medicatio n Not available Not available Not available 09/05/2022 4053 RxNorm Not Available [facility] 3 03:14:07 5533 E-Mycin medicatio n Not available Not available Not available 09/05/2022 89577 8 RxNorm Not Available [facility] 3 03:14:07 Medications Name Sig Start Date Stop Date Status Note LastModified by Organization Details LastModified Time quetiapin e 25 mg tablet Take 1 tablet every day by oral route. active Not Available Not Available No t Available cyclobenz aprine 10 mg tablet Take 1 tablet 3 times a day by oral route as needed. 09/11 completed Not Available Not Available Not Available amoxicill in 500 mg capsule TAKE 1 CAPSULE BY MOUTH EVERY 8 HOURS 04/26 completed Not Available Not Available Not Available methocarb gail 500 mg tablet TAKE 2 TABLETS BY MOUTH 4 TIMES DAILY NEEDED 12/08 completed Not Available Not Available Not Available prednison e 10 mg tablet Take 5 tablets for 3 days, then 4 tablets for 3 days, then 3 tablets for 3 days then 2 tablets for 3 days then 1 tablet for 3 days then 1/2 tablet for 3 days then off 03/13 completed Not Available Not Available Not Available albuterol sulfate 2.5 mg/3 mL (0.083 %) solution for nebulizat ion USE 1 VIAL IN NEBULIZE R THREE TIMES DAILY NEEDED 2024 active Not Available Not Available Not Avai lable triamcino lone acetonide 0.5 % topical cream 09/27 completed Not Available Not Available Not Available cetirizin e 10 mg tablet Take 1 tablet every day by oral route as needed. active Not Available Not Available No t Available hydrocodo ne 5 mg-acetam inophen 325 mg tablet TAKE 1 TABLET BY MOUTH EVERY 4 TO 6 HOURS NEEDED FOR PAIN NO MORE THAN 8 PER 24 HOURS 04/26 completed Not Available Not Available Not Available famotidin e 40 mg tablet TAKE 1 TABLET BY MOUTH ONCE DAILY IN THE EVENING 12/08 completed Not Available Not Available Not Available prednison e 20 mg tablet Take 2 tablets every day by oral route with meals for 5 days. 09/11 completed Not Available Not Available Not Available sertralin e 100 mg tablet TAKE 1 & 1/2 (ONE & ONE-HALF ) TABLETS BY MOUTH ONCE DAILY active Not Available Not Available No t Available quetiapin e 200 mg tablet Take 1 tablet every day by oral route. active Not Available Not Available No t Available hydroxyzi ne HCl 50 mg tablet TAKE 1 TABLET BY MOUTH TWICE DAILY NEEDED FOR ANXIETY 12/08 completed Not Available Not Available Not Available phentermi ne 37.5 mg tablet TAKE 1 TABLET BY MOUTH ONCE DAILY 09/27 completed Not Available Not Available Not Available omeprazol e 40 mg capsule,d elayed release Take 1 capsule by mouth once daily 12/08 completed Not Available Not Available Not Available triamcino lone acetonide 0.1 % topical cream APPLY A THIN LAYER TO AFFECTED AREAS OF BODY TWICE DAILY FOR 7 DAYS 09/10 completed Not Available Not Available Not Available lorazepam 0.5 mg tablet 1 po bid prn 12/08 completed Not Available Not Available Not Available trazodone 100 mg tablet TAKE 1 TABLET BY MOUTH EVERY DAY AT BEDTIME NEEDED active Reports trying to disconti nue Rx, currentl y taking 25mg every evening. 03/23/20 21-EG Not Available Not Available Not Available paroxetin e 20 mg tablet TAKE 1 TABLET BY MOUTH ONCE DAILY 06/05 completed Not Available Not Available Not Available diclofena c sodium 75 mg tablet,de layed release Take 1 tablet twice a day by oral route as needed. 12/08 completed Not Available Not Available Not Available monteluka st 10 mg tablet TAKE 1 TABLET BY MOUTH ONCE DAILY DIRECTED FOR 90 DAYS 2024 active Not Available Not Available Not Avai lable ergocalci ferol (vitamin D2) 1,250 mcg (50,000 unit) capsule Take 1 capsule every week by oral route. 2024 active Not Available Not Available Not Avai lable albuterol sulfate HFA 90 mcg/actua tion aerosol inhaler Inhale 2 puffs every 4-6 hours by inhalati on route as needed for 30 days. 2023 active Not Available Not Available Not Avai lable paroxetin e 40 mg tablet Take 1 tablet every day by oral route. 07/05 completed Not Available Not Available Not Available amoxicill in 875 mg-potass ium clavulana te 125 mg tablet Take 1 tablet every 12 hours by oral route as directed for 10 days. 03/13 completed Not Available Not Available Not Available Pneumovax -23 25 mcg/0.5 mL injection syringe PHARMACI ST ADMINIST ERED IMMUNIZA TION ADMINIST ERED AT TIME OF DISPENSI NG active Not Available Not Available No t Available quetiapin e 50 mg tablet 03/10 completed Not Available Not Available Not Available Symbicort 160 mcg-4.5 mcg/actua tion HFA aerosol inhaler INHALE 2 PUFFS BY MOUTH TWICE DAILY DIRECTED active Not Available Not Available No t Available ketorolac 30 mg/mL injection solution 1 ml IM x 1 09/11 completed Not Available Not Available Not Available OneTouch Delica Lancets 33 gauge active Not Available Not Available Not Available Dulera 200 mcg-5 mcg/actua tion HFA aerosol inhaler INHALE 2 PUFFS BY MOUTH TWICE DAILY DIRECTED FOR 30 DAYS 09/10 completed Not Available Not Available Not Available OneTouch Verio test strips test daily dx r73.03 one touch verio active Not Available Not Available No t Available Spiriva Respimat 2.5 mcg/actua tion solution for inhalatio n Inhale 2 puffs every day by inhalati on route for 30 days. 09/10 completed Not Available Not Available Not Available Asmanex HFA 200 mcg/actua tion aerosol inhaler Inhale 2 puffs twice a day by inhalati on route. 09/27 completed Not Available Not Available Not Available Asmanex HFA 09/01 completed Not Available Not Available Not Available Breo Ellipta 200 mcg-25 mcg/dose powder for inhalatio n Inhale 1 puff every day by inhalati on route as directed for 30 days. 12/21 completed Not Available Not Available Not Available Spiriva Respimat 1.25 mcg/actua tion solution for inhalatio n Inhale 2 puffs every day by inhalati on route. 06/29 completed Not Available Not Available Not Available Allergy Relief (fluticas one) 50 mcg/actua tion nasal spray,james pension [place] 1 spray every day by intranas al route. 12/21 completed Not Available Not Available Not Available Wixela Inhub 250 mcg-50 mcg/dose powder for inhalatio n INHALE 1 PUFF BY MOUTH TWICE DAILY DIRECTED 06/22 completed Not Available Not Available Not Available Afluria Qd 2018- (36 mos up)(PF)60 mcg (15 mcg x4)/0.5 mL IM syringe ADM 0.5ML IM UTD active Not Available Not Available No t Available Vitals Date Recorded Body height Body mass index (BMI) Body weight Heart rate Oxygen saturation Oxygen saturation in Arterial blood by Pulse oximetry Systolic blood pressure Diastolic blood pressure Provider Name and Address Organization Details Last Updated DateTime 4 167.64 cm 32 kg/m2 08734.2 9 g 98 /min 97 % 97 % 122 mm[Hg] 80 mm[Hg] Blu Palomino RN [facility] [employer] 4 15:58:17 Date Recorded Body height Body mass index (BMI) Body weight Body temperature Heart rate Oxygen saturation Oxygen saturation in Arterial blood by Pulse oximetry Systolic blood pressure Diastolic blood pressure Provider Name and Address Organization Details Last Updated DateTime 5 167.64 cm 37.4 kg/m2 511407. 43 g 97.9 [degF] 105 /min 96 % 96 % 148 mm[Hg] 88 mm[Hg] BARBARA Lott [employer] [facility] [employer] 5 14:46:18 Date Recorded Body height Body mass index (BMI) Body weight Body temperature Heart rate Oxygen saturation Oxygen saturation in Arterial blood by Pulse oximetry Systolic blood pressure Diastolic blood pressure Provider Name and Address Organization Details Last Updated DateTime 4 167.64 cm 33.1 kg/m2 46273.4 4 g 97.1 [degF] 94 /min 97 % 97 % 140 mm[Hg] 92 mm[Hg] Kimberly Schneider RN [facility] [employer] 4 14:03:26 Date Recorded Body height Body mass index (BMI) Body weight Body temperature Heart rate Oxygen saturation Oxygen saturation in Arterial blood by Pulse oximetry Systolic blood pressure Diastolic blood pressure Provider Name and Address Organization Details Last Updated DateTime 3 167.64 cm 30.3 kg/m2 84627.3 7 g 96.5 [degF] 98 /min 96 % 96 % 118 mm[Hg] 62 mm[Hg] Maydapearl Gonsalves [place] [employer] [facility] [employer] 3 10:12:49 Date Recorded Body height Body mass index (BMI) Body weight Heart rate Oxygen saturation Oxygen saturation in Arterial blood by Pulse oximetry Systolic blood pressure Diastolic blood pressure Provider Name and Address Organization Details Last Updated DateTime 3 167.64 cm 31 kg/m2 70148.7 4 g 98 /min 96 % 96 % 116 mm[Hg] 62 mm[Hg] Bertha Dc MA [employer] [facility] [employer] 3 12:33:53 Social History Question Answer Notes LastModified by Organizat ion Details LastModified Time Tobacco Smoking Status Current Every Day Smoker BARBAAR [place] [employer] [facility] [employer] 12/08/2024 14:40:50 What Is Your Level Of Caffeine Consumption? Moderate [id number] Information not available 09/05/2022 How Much Tobacco Do You Chew? None [id number] Information not available 09/05/2022 In The 14 Days Before Symptom Onset, Have You Had Close Contact With A Laboratory-confi rmed COVID-19 While That Case Was Ill? No Information not available 11/06/2022 In The 14 Days Before Symptom Onset, Have You Had Close Contact With A Person Who Is Under Investigation For COVID-19 While That Person Was Ill? No Information not available 11/06/2022 What Type Of Diet Are You Following? REGULAR [id number] Information not available 09/05/2022 Which Illicit Or Recreational Drugs Have You Used? Marijuana Information not available 12/08/2024 Do You Use Insect Repellent Routinely? Yes Information not available 12/08/2024 Where Do You Live? [facility] Information not available 12/08/2024 What Was The Date Of Your Most Recent Tobacco Screening? 12/08/2024 Information not available 12/08/2024 Do You Have Any Pets? No Information not available 12/08/2024 What Is Your Relationship Status? [id number] Information not available 09/05/2022 Do You Use Your Seat Belt Or Car Seat Routinely? Yes Information not available 12/08/2024 Do You Have Smoke And Carbon Monoxide Detectors In Your Home? Yes Information not available 12/08/2024 Are There Any Smokers In Your House? No Information not available 12/08/2024 How Much Tobacco Do You Smoke? 0.5 PPD Information not available 12/08/2024 Do You Use Sunscreen Routinely? Yes Information not available 12/08/2024 Have You Recently Traveled Abroad? No Information not available 11/06/2022 Do You Have Any Dietary Restrictions? No Information not available 11/06/2022 Sex: Male Functional Status Question Answer Note LastModified by Organizat ion Details LastModified Time Do you use any illicit or recreational drugs? Yes Information not available 12/08/2024 Do you or have you ever used any other forms of tobacco or nicotine? No Information not available 12/08/2024 What is your level of alcohol consumption? None [id number] Information not available 09/05/2022 Do you or have you ever used smokeless tobacco? Never used smokeless tobacco MIGRATION.[id number] Information not available 09/05/2022 Are you currently employed? 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 Never used electronic cigarettes Information not available 11/06/2022 What is your exercise level? None MIGRATION.[id number] Information not available 09/05/2022 Mental Status Question Answer Note LastModified by Organization D etails LastModified Time Do you feel stressed (tense, restless, nervous, or anxious, or unable to sleep at night)? [id number] Information not available 11/06/2022 Family History Relationship Description Onset Age of this Age Resolved Age Notes LastModified by Organization Details LastModified Time Mother Crohn's disease [id number] Not available 09/05/2022 02:46:53 Father Essential hypertension [id number] [id number] Not available 09/05/2022 02:46:53 Father Cerebrovascu lar accident MIGRATION.469 [id number] Not available 09/05/2022 02:46:53 Father Malignant neoplasm of urinary bladder [id number] [id number] Not available 09/05/2022 02:46:53 Medical History Condition Response BLINDNESS N BLADDER PROBLEMS N SLEEP APNEA N ALLERGIES/HAYFEVER N OTHER # 1 N INFECTIOUS DISEASE N LUNG DISEASE/DISORDER N HEART ARRHYTHMIA N INSOMNIA N RADIATION / CHEMOTHERAPY N COPD N Other # 2 N HYPERTHYROIDISM N NEUROLOGICAL PROBLEMS N BLOOD DISEASES N SURGERY N EDEMA N EAR OR HEARING PROBLEMS N CHRONIC PAIN SYNDROME N HYPOTHYROIDISM N DEPRESSION (INCLUDING POST ) Y BACK / NECK PROBLEMS N HAVE YOU BEEN HOSPITALIZED OR SEEN IN [facility] IN THE PAST YEAR ? N STROKE/TIA N ULCERS N BENIGN PROSTATIC HYPERPLASIA N BREAST PROBLEMS N MYOCARDIAL INFARCTION N OBESITY N GERD/NAUSEA N ANEURYSM N INPATIENT PSYCH CARE N CORONARY ARTERY DISEASE (CAD) N USE OF BLOOD THINNERS N NO SIGNIFICANT PAST MEDICAL HISTORY N DIABETES, TYPE N GASTROINTESTINAL DISORDER N PARATHYROID DISEASE N ENT N SEASONAL ALLERGIES N HEARTBURN / REFLUX N GASTROINTESTINAL BLEEDING N HEPATITIS / LIVER DISEASE N ASTHMA N PULMONARY DISEASE N SLEEP DISORDER N ALZHEIMER'S DISEASE N FATIGUE N SEIZURES/EPILEPSY N HEADACHES/MIGRAINES N GI PROBLEMS N CHF N Low Testosterone N DIZZINESS N KIDNEY DISEASE N HEART DISEASE/HEART PROBLEMS N AIDS/HIV N FRACTURES N LIVER DISEASE N HYPERTENSION N CANCER: SPECIFY N ANXIETY DISORDER Y BLOOD TRANSFUSION N ANESTHESIA COMPLICATIONS N ANEMIA/BLOOD DISORDER N CHRONIC EAR INFECTIONS N ATRIAL FIBRILLATION N PULMONARY EMBOLISM N AUTOIMMUNE DISEASE N TUBERCULOSIS N GLAUCOMA N FOOT PROBLEM N Immunizations Vaccine Type Date Status Note Provider Nam e and Address Organization Details Recorded Time Influenza, split virus, quadrivalent, PF 3 completed Blu Palomino RN [facility], [place] - [facility] [employer] 03/13/2023 15:53:14 Influenza, split virus, quadrivalent, preservative 9 completed Not Available [facility] 09/05/2022 03:13:46 pneumococcal polysaccharide PPV23 0 completed Not Available [facility] 09/05/2022 03:13:46 Influenza, split virus, quadrivalent, PF 2 completed Not Available [facility] 09/05/2022 03:13:47 Influenza, split virus, quadrivalent, PF 0 completed Not Available [facility] 09/05/2022 03:13:47 Past Encounters Encounter ID Performer Location Encounter Start Date Encounter Closed Date Diagnosis/Indication Diagnosis SNOMED-CT Code Diagnosis ICD10 Code Diagnosis Note [id number] Bonifacio Mancia MD [facility] [place] [address] [place] [address] 09/15/2020 00:00:00 09/15/2020 11:56:13 [id number] [facility] [place] [address] [place] [address] 12/21/2020 00:00:00 12/21/2020 13:47:55 [id number] Jodi Diaz MD [facility] [address] [place] [address] 03/06/2021 00:00:00 03/06/2021 14:27:25 [id number] [facility] [place] [address] [place] [address] 03/23/2021 00:00:00 03/23/2021 12:20:20 [id number] [facility] [place] [address] [place] [address] 03/30/2021 00:00:00 03/30/2021 16:47:17 [id number] [facility] [place] [address] [place] [address] 06/22/2021 00:00:00 06/22/2021 13:55:19 [id number] [facility] [place] [address] [place] [address] 08/24/2021 00:00:00 08/24/2021 12:35:20 [id number] Jodi Diaz MD [facility] [place] [address] [place] [address] 09/04/2021 00:00:00 09/04/2021 15:08:59 [id number] [facility] [place] [address] [place] [address] 10/03/2021 00:00:00 10/03/2021 16:44:00 [id number] Deb Garcia [facility] Pul[facility] [place] [address] [place] [address] 10/31/2021 00:00:00 10/31/2021 15:50:05 [id number] [facility] [place] [address] [place] [address] 12/11/2021 00:00:00 12/11/2021 16:07:52 [id number] Jodi Diaz MD [facility] [place] [address] [place] [address] 04/26/2022 00:00:00 04/30/2022 11:28:09 [id number] Jodi Diaz MD [facility] [place] [address] [place] [address] 05/21/2022 00:00:00 06/05/2022 21:00:59 [id number] Jodi Diaz MD [facility] [place] [address] [place] [address] 05/28/2022 00:00:00 06/05/2022 08:23:51 [id number] ESTUARDO Still [facility] Pul[facility] [place] [address] [place] [address] 06/11/2022 00:00:00 06/11/2022 13:44:00 [id number] Jodi Diaz MD [facility] [place] [address] [place] [address] 07/05/2022 00:00:00 07/05/2022 12:46:40 [id number] Deb Garcia, [facility] Pulmonolo gy [place] [address] [place] [address] 08/06/2022 00:00:00 08/06/2022 15:25:05 [id number] Jodi Diaz MD [facility] Primary Care E[place] cadena [address] [place] [address] 08/15/2022 00:00:00 09/02/2022 16:14:09 [id number] Jodi Diaz MD [facility] Ethel [facility] [address] [facility] [address] [place] [address] 08/28/2022 00:00:00 09/02/2022 15:23:02 [id number] Paige Calles NP [facility] [address] [address] 08/14/2022 00:00:00 08/16/2022 10:02:26 [id number] Paige Calles NP [facility] [address] [address] 09/11/2022 10:44:46 09/11/2022 15:42:11 [id number] Jodi Diaz MD [facility] [place] [address] [address] [facility] [address] [place] [address] 09/11/2022 16:01:41 09/11/2022 16:42:31 Hyperactive pharyngeal gag reflex 3744118832 50593 J39.2 eat smaller, more frequent mealsomepr azole 40 mg dailyf/u in 4 weeks or sooner if needed Anxiety 41329110 F41.9 continue quetiapine 50 mg dailyconti nue sertraline 150 mg dailyloraz epam 0.5 mg 1 po bid prn severe anxiety do not take before driving/wo rking #15 tabs givenPt understand s this medication has risk for abuse/depe ndence and agrees to take it only as prescribed and to guard from loss/theft f/u in 4 weeks with psychiatri c DEVELOPMENT ASSOCIATE as scheduled Restlessne ss and agitation 889089566 R45.1 [id number] Paige Calles NP [facility] [address] [address] 10/09/2022 11:02:56 10/09/2022 14:45:16 [id number] Eugene hinojosa MD [facility] General Surgery [address] [address] 10/16/2022 12:45:15 11/02/2022 09:09:06 Umbilical hernia 525557019 K42.9 Mass of soft tissue 4449 21698 R22.9 abdominal wall fatty mass [id number] Eugene hinojosa MD [facility] General Surgery [address] [address] 11/06/2022 11:44:07 11/06/2022 14:30:45 [id number] Paige Calles NP [facility] [address] [address] 11/07/2022 11:44:52 11/07/2022 16:10:31 [id number] Jodi Diaz MD [facility] Primary Care [facility] [address] [facility] [address] [place] [address] 12/11/2022 14:04:42 12/11/2022 15:20:19 Prediabetes 495462286 R73.03 continue healthy diet and exercisech yani labs [id number] Paige Calles NP [facility] [address] [address] 12/11/2022 16:16:35 12/11/2022 16:57:57 [id number] Paige Calles NP [facility] [address] [address] 01/09/2023 11:55:07 01/09/2023 12:54:27 [id number] Paige Calles NP [facility] [address] [place] [address] 03/06/2023 13:54:12 03/06/2023 15:42:28 [id number] Deb Garcia, FIELD SALES SPECIALIST-BC [facility] [place] [address] [place] [address] 03/06/2023 15:33:30 03/06/2023 16:38:39 Exacerbation of moderate persistent asthma 008385704 J45.41 Start antibiotic s and steroids.I nstructed on emergently reportable signs and symptoms Mixed sleep apnea 435418 001 G47.39 Home study 05/04/21 with AHI 38.4.Incom plete titration in lab 11/2021No PLMSApneas were positional , worse supineMach ine set up 07/06/21 with APAP 6-18Change d settings at last OV to 15-20He has not been using his machineDis cussed the risks of uncorrecte d sleep apnea, including .With weight loss, may need to be re-testedW ill stabilize respirator y symptoms then re-assess Asthma 815303833 J45.90 9 PFT 05/2019 with FEV1 51%, improvemen t to 71% after bronchodil ator.Curre ntly on Dulera 200Add Spiriva 2.5- samples to patient todayCBC with no eosinophil ia, IGE WNL.RAST with multiple mild positivesC ontinue montelukas tContinue 2 gen antihistam ineCurrent on vaccinesDi scussed reportable signs and symptoms Fatigue 68164231 R53.83 Discussed sleep hygeine Follow with PCM for labs [id number] Jodi Diaz MD [facility] [address] [facility] [address] [facility] [address] 03/13/2023 15:13:09 03/13/2023 16:30:58 Administration of influenza vaccine 11926464 Z23 Prediabetes 901054768 R7 3.03 continue healthy diet and exerciseMo st recent a1c improved at 6.1f/u in 6 months Anxiety 08169805 F41.9 stableseei ng psychiatry continue quetiapine 150 mg dailyconti nue sertraline 150 mg dailyloraz epam 0.5 mg 1 po bid prn severe anxiety do not take before driving/wo rkingPt understand s this medication has risk for abuse/depe ndence and agrees to take it only as prescribed and to guard from loss/theft f/u in 6 months or sooner if needed [id number] Deb Garcia [facility] Pulmonolo gy [place] [address] [place] [address] 03/29/2023 09:51:30 03/29/2023 11:08:32 Mixed sleep apnea 843040724 G47.39 Home study 05/04/21 with AHI 38.4.Incom plete titration in lab 11/2021No PLMSApneas were positional , worse supineMach ine set up 07/06/21 with APAP 6-18Change d settings at last OV to 15-20He has not been using his machineDis cussed the risks of uncorrecte d sleep apnea, including .With weight loss, may need to be re-testedW ill stabilize respirator y symptoms then re-assess Asthma 802861113 J45.90 9 PFT 05/2019 with FEV1 51%, improvemen t to 71% after bronchodil ator.Curre ntly on Dulera 200 and Spiriva 2.5Aerocha mber providedCB C with no eosinophil ia, IGE WNL.RAST with multiple mild positivesC ontinue montelukas tContinue 2 gen antihistam ineRecomme nd vaccines this fallDiscus sed reportable signs and symptomsRT C in 2 months Fatigue 57815908 R53.83 Discussed sleep hygeineFol low with PCM for labs [id number] ESTUARDO [facility] Pulmon[place] gy [place] [address] [place] [address] 05/28/2023 12:19:22 05/28/2023 14:22:00 Asthma 353742649 J45.909 PFT 05/2019 with FEV1 51%, improvemen t to 71% after bronchodil ator.Curre ntly on Dulera 200 two puffs BID and Spiriva 2.5 dailyHe has an aerochambe rCBC with no eosinophil ia, IGE WNL.RAST with multiple mild positivesC ontinue montelukas tContinue 2 gen antihistam ineRecomme nd vaccines this fallDiscus sed reportable signs and symptomsRT C in 2 months Mixed sleep apnea 482401 001 G47.39 Home study 05/04/21 with AHI 38.4.Incom plete titration in lab 11/2021No PLMSApneas were positional , worse supineMach ine set up 07/06/21 with APAP 6-18Change d settings at last OV to 15-He has not been using his machineDis cussed the risks of uncorrecte d sleep apnea, including .Enco uraged nightly use [id number] Paige Calles NP [facility] [address] [address] 06/05/2023 14:26:55 06/05/2023 15:16:03 [id number] Paige Calles NP [facility] [address] [address] 09/03/2023 14:33:05 09/03/2023 15:33:20 [id number] Jodi Diaz MD [facility] Primary Care [facility] [address] [facility] [address] [place] [address] 09/11/2023 15:16:08 09/11/2023 16:34:00 Asthma 219878610 J45.909 Prediabetes 835138870 R7 3.03 Hyperlipidemia 84276227 E78.5 Essential hypertension 11808916 I10 [id number] Paige Calles NP [facility] [address] [address] 09/19/2023 16:43:27 09/19/2023 17:26:35 [id number] Paige Calles NP [facility] [address] [address] 10/17/2023 12:21:13 10/17/2023 13:04:13 [id number] Paige Calles, SHEREE [facility] [address] [address] 12/10/2023 16:08:20 12/10/2023 17:23:33 [id number] [facility] [address] Rosa [address] [address] 01/13/2024 14:47:25 01/13/2024 15:21:34 [id number] Paige Calles, SHEREE [facility] [address] [place] [address] [address] 02/10/2024 15:12:56 02/10/2024 15:38:17 [id number] Alexys Cooper, FIELD SALES SPECIALIST-C [facility] Primary Care [facility] [address] [facility] [address] [place] [address] 03/10/2024 13:53:53 03/10/2024 14:15:26 Resting tremor 65503599 G25.2 [id number] [facility] [address] [address] 04/07/2024 16:28:41 04/07/2024 16:54:19 [id number] [facility] [address] [address] 05/05/2024 15:35:01 05/05/2024 16:02:36 [id number] [facility] [address] [address] 06/25/2024 16:11:46 06/25/2024 17:03:50 [id number] [facility] [address] [address] 09/22/2024 16:07:39 09/23/2024 17:02:29 [id number] RAGHU Lima [facility] [address] [facility] [address] [place] [address] 12/08/2024 14:27:33 12/08/2024 15:02:48 Asthma - currently active 116328216 J45.909 Doing well at this time.No longer seeing pulmonolog y.Will refill meds as listed below. Adult heal th examination 203647999 Z00.00 Discussed medication compliance and routine follow up.Discuss ed healthy diet and routine exercise.R pagewed vaccine records and made recommenda tions as needed.Enc ouraged annual eye and dental exams, as well as twice yearly dental cleanings. Will check screening labs as listed below. Tremor 57928866 R25.1 Ongoing for 3 years.Will refer to neurology for further evaluation . Prediabetes 504123232 R7 3.03 Will check labs as listed below. Obstructiv e sleep apnea syndrome 54567462 G47.33 Doing well at this time.Does not use CPAP. Hyperlipidemia 72396685 E78.5 Will check labs as listed below. Essential hypertension 52277124 I10 148/88 /78 recheckDis cussed DASH diet and routine exercise.W ill check labs as listed below. Body mass index 30+ - obesity 840648636 E66.9 Weight: 232 poundsBMI: 37.4Discus sed healthy diet and routine exercise. [id number] Paige Calles NP [facility] [address] [address] 12/17/2024 15:59:53 12/17/2024 16:47:45 Health Concerns Section Related Observation LastModified by Organization Detai ls LastModified Time None Recorded Concern Status LastModified by Organization Details LastModified Time None Recorded Advance Directives Directive None Recorded Payers Insurance Date Sequence Insurance Name Policy Number Policy Sierra Covered Member ID Sierra Member ID Guarantor Name 12/17/2024 1 [facility] (MEDICAID REPLACEMENT - HMO) [id number] Steve Shafer [id number] Steve Shafer Notes Date Note Type Note Provider Name and Address Organization Details Recorded Time 03/29/2023 text/html Mr Shafer presents today to follow up on FRANDY, asthma, fatigue.He had significant improvement from steroids and antibioticsFeels like he is back to his baseline from illness.Continues to have restless sleepTells me he is thirsty all the time and wakes with nocturia.Unable to use his PAP at night and has restless sleepHe remains unable to work and has increased in anxiety.Albuterol use is significantly decreasedDyspnea improvedCompliant with all medications as directed, dulera and montelukastUsing aerochamber - requesting another today ESTUARDO StillBC [address], [place], [address], [employer] 03/29/2023 14:53:35 05/28/2023 text/html Mr Shafer presents today to follow up on FRANDY, asthma, fatigue.He has been doing very well with minimal respiratory concernsCompliant with Dulera and SpirivaHe does use his nebulizer dailyHe has not had any change in activity tolerance, cough, wheezing.Not using PAP at night, does admit to fatigue ESTUARDO Still [address], [place], [address], [employer] 05/28/2023 17:12:53 09/11/2023 text/html here for f/u, wa s seen in ER in August for asthma attack, he thinks it was due to nebulizer tubing with growth in it that caused his irritation. Blood pressure 138/82. Was seeing therapist last week, bp was initially elevated but repeat bp was at goal. Still having anxiety and tremors. Having headaches that last for days. Headaches can occur in the evening and last for days. He has h/o sleep apnea, does not use cpap-hard to tolerate. He does think his sleep is good overall. Jodi Diaz MD [address], [address], [place], [address], [employer] 09/24/2023 08:03:51 03/10/2024 text/html pt is here for f/u RAGHU Garner [address], [address], [place], [address], [employer] [facility] authorGEN 03/10/2024 14:14:25 12/08/2024 text/html Patient is a 49 year old male that presents to the office for annual wellness. psychotherapy-every 3 months labs- orderedColonoscopy- UTD, due in 2025Flu- declinesCovid- UTDTdap- UTD PAUL Lima-Isaak [address] [facility], [address], [place], [address], [facility] [employer] [facility] [employer] 12/08/2024 15:11:47
[2024-12-22 00:13] VITALS: BP 156/91; PULSE 94; RESP 18; O2SAT 100
--- NOTE | 2024-12-22 00:22 | ED.HA ---
HPI - Headache General Chief Complaint: Headache Stated Complaint: HTN, headache Time Seen by Provider: 12/21/24 23:55 Source: patient Mode of arrival: ambulatory Limitations: no limitations History of Present Illness HPI Narrative: This is a 49 year old male that presents to the ER for headache. Ongoing since earlier today. Reports history of migraines frequently lasting several days. He does not take any prescribed medications for this. He did take for ibuprofen a couple of hours ago. Reports he is also currently having some sinus issues, congestion after doing yard work yesterday. Denies fevers, vision changes, vomiting, focal numbness or weakness. Related Data Home Medications ?Medication ?Instructions ?Recorded ?Confirmed ?Last Taken ?Type albuterol 90 mcg/actuation aerosol 90 mcg inhalation PRN PRN Dyspnea 04/17/21 09/20/21 Unknown History inhaler montelukast 10 mg tablet 10 mg PO DAILY 04/17/21 09/20/21 05/01/21 History paroxetine HCl 20 mg tablet 20 mg PO DAILY 04/17/21 09/20/21 05/01/21 History famotidine 40 mg tablet 40 mg PO DAILY 09/15/21 09/20/21 Unknown History mometasone-formoterol HFA 200 2 puff inhalation BID 09/15/21 09/20/21 Unknown History mcg-5 mcg/actuation aerosol inhaler (Dulera) Allergies Allergy/AdvReac Type Severity Reaction Status Date / Time erythromycin base Allergy Unknown Gastrointestinal Verified 09/20/21 09:15 Upset nickel Allergy Unknown Rash Verified 12/21/24 23:46 Review of Systems Review of Systems: CONSTITUTIONAL: Denies fever EYES: Denies visual changes GASTROINTESTINAL: Denies vomiting NEUROLOGIC: Reports headache. Denies numbness, or weakness. All systems reviewed & are unremarkable except as noted in HPI and below PMFSH Past Medical History Medical History Anxiety Asthma Colon cancer screening Depression Obesity Surgical History Surgical History Inguinal hernia 2005 Family History Family History Other Bladder cancer Cancer Cerebrovascular accident Diabetes mellitus Heart disease Hypertension Social History Social History Smoking packs per day: 1 Smoking cigarettes per day: 20.0 Years smoked: 20 Smoking pack-years: 20.00 Smoking status: Former smoker Tobacco type: cigarettes Alcohol intake: never Substance use: never Substance use type: does not use Living arrangements: alone Occupation/Education: occupation Additional occupation/education comments: [employer] care concerns: No Exam Narrative: GENERAL: Well-appearing, well-nourished, and in no acute distress. HEAD: Normocephalic, atraumatic. EYES: PERRLA and EOMI. ENT: Nares clear, no rhinorrhea or epistaxis. Mucous membranes moist. Oropharynx without tonsillar hypertrophy exudate or other lesions. Bilateral TMs pearly giles non-bulging NECK: Supple. No adenopathy or masses. CHEST: Clear to auscultation. No respiratory distress. No wheezes rales or rhonchi HEART: Regular rate and rhythm. No murmur heard. Normal peripheral pulses. EXTREMITIES: Normal range of motion. No edema. Strength equal in bilateral upper and lower extremities (5/5) SKIN: Warm, dry, no rash. NEURO: No focal deficits. Alert and oriented x3. Cranial nerves 2-12 grossly intact PSYCH: Normal mood and affect Course Course Emergency Course: Patient updated on his workup and agrees with plan of care Vital Signs Vital signs: Vital Signs Temperature 96.9 F L 12/21/24 23:42 Pulse Rate 101 H 12/21/24 23:42 Respiratory Rate 15 12/21/24 23:42 Blood Pressure 147/97 H 12/21/24 23:42 Pulse Oximetry 100 12/21/24 23:42 Oxygen Delivery Room Air 12/21/24 23:42 Temperature 96.9 F L 12/21/24 23:42 Pulse Rate 95 12/22/24 01:10 Respiratory Rate 16 12/22/24 01:10 Blood Pressure 141/83 H 12/22/24 01:10 Pulse Oximetry 98 12/22/24 01:10 Oxygen Delivery Room Air 12/21/24 23:42 MDM - Headache MDM Narrative Medical decision making narrative: Patient presents to the emergency department for a headache tonight. He does report long-standing history of headaches. Patient is afebrile and nontoxic appearing. He is neurologically intact. CT brain without acute findings. Patient hydrated, given Reglan, Benadryl and Tylenol with relief. Patient updated on his workup and agrees with plan of care. He is to follow up with primary provider. He was given warnings to return to the ER Differential Diagnosis Differential diagnosis: Likely migraine, tension headache, subarachnoid hemorrhage, headache and sinusitis Imaging Data Radiologist's impression: CT brain: No acute intracranial hemorrhage. No midline shift or mass effect. The territorial giles-white matter differentiation is maintained throughout. The ventricles and sulci are commensurate with age Critical Care Time Critical Care Time Critical Care Time: No Discharge Plan Discharge Clinical Impression: Headache Qualifiers: Headache type: unspecified Headache chronicity pattern: acute headache Intractability: not intractable Qualified Code(s): R51.9 - Headache, unspecified Patient Disposition: Home Condition: Stable Instructions: Acute Headache (ED) Additional Instructions: Return to the emergency department if you experience fever, vision changes, vomiting, weakness, numbness, or any other symptoms that are concerning to you. Rest. Remain well hydrated. Tylenol or Ibuprofen as needed for pain Follow up with your primary care doctor Patient Language: Wallisian Prescriptions: No Action Dulera 200-5 mcg/actuation HFA aerosol inhaler 2 puff inhalation BID famotidine 40 mg tablet 40 mg PO DAILY paroxetine HCl 20 mg tablet 20 mg PO DAILY montelukast 10 mg tablet 10 mg PO DAILY Ventolin 90 mcg/actuation Aerosol 90 mcg INHALATION PRN PRN (Reason: Dyspnea) hydroxyzine HCl 50 mg tablet 50 mg PO BID PRN (Reason: anxiety) Qty: 14 0RF prednisone 20 mg tablet 40 mg PO DAILY 5 Days Qty: 10 0RF Follow-up/Referrals: Osiris,Barbara Pearce NP [Primary Care Provider] -
--- OUTSIDE RECORDS SUMMARY | 2024-12-22 00:33 | XMS_ITS | CONTINUITY OF CARE DOCUMENT ---
Author Name derrell dove Address Unknown Organization [facility] Address [address] [place] [address] Phone [phone] Care Team Providers Care Wick And Base Assembler Name Role Phone Rafa Strange MD Unavailable [phone] SAIDA SCHNEIDER MD Unavailable [phone] SAIDA SCHNEIDER MD Unavailable PROBLEMS Condition Status Date Provider Notes Cardiology examination active Rafa Strange MD Palpitations active Rafa Strange MD Shortness of breath active Rafa Strange MD ENCOUNTERS Date Type Provider Location Encounter Diag nosis 9 - 9 In-person encounter Office Visit Rafa Strange MD [facility] 2 - 2 In-person encounter Office Visit Rafa Strange MD [facility] Cardiology examinationPalpitationsShortness of breath VITAL SIGNS Date Observation Value Provider Body Mass Index (Ratio) 34.70 kg/m2 Linette Strange MD blood pressure, cuff size large Ri nafisa Stevens blood pressure, diastolic 68 mm[Hg] Ri nafisa Stevens blood pressure, systolic 117 mm[Hg] Shahram chanel Stevens oxygen saturation, oximetry 97 % Terra Stevens respiratory rate E&M 16 /min Yeni Stevens pulse rate 90 /min Terra esteban weight E&M 215 [lb_av] Terra Pattontrinidad carlito height E&M 66 [in_i] Terra esteban weight E&M 220 [lb_av] Sasha Sheikh Body Mass Index (Ratio) 35.60 kg/m2 Linette Strange MD blood pressure, diastolic 93 mm[Hg] St rlmarsha Cook blood pressure, systolic 144 mm[Hg] Sta tr Cook oxygen saturation, oximetry 97 % Delilahtr Cook pulse rate 95 /min Delilahtr Cook weight E&M 220.6 [lb_av] Delilahtr Cook height E&M 66 [in_i] Delilahtr Cook respiratory rate E&M 18 /min Delilah acosta ALLERGIES Allergy Name Onset Date Reaction Criticality Status ERTYTHROMAYCN High Criticality activ e HISTORY OF MEDICATION USE Medication Status Instructions Dates Provider Indications Com ments sertraline 100 mg tablet active Terra Stevens Dulera 200-5 mcg/actuation HFA aerosol inhaler active Delilah Cook albuterol sulfate 90 mcg/actuation HFA aerosol inhaler active Delilah Cook montelukast 10 mg tablet active Delilah Cook paroxetine HCl 20 mg tablet completed - Terra Stevens SOCIAL HISTORY Date Observation Value Provider drug use, illicit, d rug of choice marijuana Rafa Strange MD drug use yes Rafa Strange MD alcohol use no Rafa Strange MD social history E&M S moking History: Yelena renteria is a former smoker. Rafa Strange MD social history reviewed E&M revi ewed - no changes required Rafa Strange MD passive cigarette sm demarcus exposure no Terra Stevens chewing tobacco use Never Terra Stevens smoking, year quit 2009 Terra Stevens smoking history, tot al pack/day 1 Terra Stevens cigarette use yes Terra avery smoking status Former smoker Terra henry drug use, illicit, d rug of choice marijuana Rafa Strange MD drug use yes Rafa Strange MD alcohol use no Rafa Strange MD social history E&M S moking History: Yelena renteria is a former smoker. Rafa Strange MD social history reviewed E&M revi ewed - no changes required Rafa Strange MD smoking history, tot al pack/day 1 Delilah Joey smoking, year quit 2009 Delilah Roland is cigarette use yes Delilah Cook passive cigarette sm demarcus exposure no Delilah Cook chewing tobacco use Never Delilah Da vis smoking status Former smoker Delilah Joey INSURANCE PROVIDERS Payer name Policy type / Coverage type [place] [employer] ID [facility] [id number] ADVANCE DIRECTIVES Name Date DISCUSSED - NO DECISION MADE TREATMENT PLAN Date Name Performer [id number],C,u nchanged n o further work up Rafa Strange MD [id number],C,n eg stress and normal echo H owever has a very strong faM HX OF CAD/MN w ould consider putting him on a statin Rafa Strange MD [id number],C,W ill check routine stress test to see his objective endurance. Make sure no ischemia is seen. Rafa Strange MD [id number],C,P t has been experiencing cold sweats and heart racing for past 2 months. Happens at rest and also occurs with exertion. WIll check 48hr holter and get an echo. Rafa Strange MD Cardiology:unchanged n o further work up Rafa Strange MD Cardiology:neg stres s and normal echo H owever has a very strong faM HX OF CAD/MN w ould consider putting him on a statin Rafa Strange MD Cardiology:Will chec k routine stress test to see his objective endurance. Make sure no ischemia is seen. Rafa Strange MD Cardiology:Pt has be en experiencing cold sweats and heart racing for past 2 months. Happens at rest and also occurs with exertion. WIll check 48hr holter and get an echo. Rafa Strange MD Date Name Complete Echo Stress Routine Holter Monitor 48 hr HISTORY OF PROCEDURES Procedure Date Procedure Name Provider Procedure Notes S tatus EKG Rafa Strange MD completed
--- OUTSIDE RECORDS SUMMARY | 2024-12-22 00:34 | XMS_ITS | Clinical Summary ---
Author Organization [facility] Address [address] [place] [address] Phone Care Team Providers Care Manager Radiation Name Role Phone Alexys Cooper APRN, EQUIPMENT HIRE MANAGER Primary Care Provider Allergies Active Allergy Reactions Criticality Noted Date Comments Erythromycin Nausea 03/11/2024 Erythromycin Base Nausea 03/11/2024 Medications albuterol (PROVENTIL, VENTOLIN) (2.5 MG/3ML) 0.083% Nebulizer Soln USE 1 VIAL IN NEBULIZER THREE TIMES DAILY NEEDED 4 Active albuterol 108 (90 Base) MCG/ACT Aerosol Solution INHALE 2 PUFFS BY MOUTH EVERY 4 TO 6 HOURS 4 Active famotidine (PEPCID) 40 MG Tablet Take 40 mg by mouth every evening. 4 Active hydrOXYzine (ATARAX) 50 MG Tablet Take 50 mg by mouth every 6 hours as needed. Active LORazepam (ATIVAN) 0.5 MG Tablet Take 0.5 mg by mouth every 6 hours as needed. Active methocarbamol (ROBAXIN) 500 MG Tablet Take 1,000 mg by mouth 4 times daily. Active montelukast (SINGULAIR) 10 MG Tablet 4 Active omeprazole (PriLOSEC) 40 MG CAPSULE DELAYED RELEASE Take 40 mg by mouth daily. Active QUEtiapine (SEROquel) 200 MG Tablet TAKE 1 TABLET BY MOUTH ONCE DAILY AT BEDTIME 4 Active QUEtiapine (SEROquel) 25 MG Tablet TAKE 1/2 (ONE-HALF) TABLET BY MOUTH IN THE MORNING AND 1/2 (ONE-HALF) TABLET AT 1 PM 4 Active sertraline (ZOLOFT) 100 MG Tablet TAKE 1 & 1/2 (ONE & ONE-HALF) TABLETS BY MOUTH ONCE DAILY FOR 90 DAYS 4 Active ergocalciferol (VITAMIN D) 06734 UNIT Capsule take 1 capsule by mouth once a week 5 Active Dulera 200-5 MCG/ACT Aerosol 5 Active Social History Tobacco Use Types Packs/Day Years Used Date Smoking Tobacco: Former Cigarettes Smokeless Tobacco: Never Tobacco Cessation:Counseling Given: Not Answered Alcohol Use Standard Drinks/Week Comments Not Currently 0 (1 standard drink = 0.6 oz pur e alcohol) Sex and Gender Information Value Date Recorded Sex Assigned at Not on file Legal Sex Male 1:32 PM CDT Gender Identity Not on file Sexual Orientation Not on file Plan of Treatment Upcoming Encounters Date Type Department Care Team (Late st Contact Info) Description 07/13/2025 3:00 PM TOILET PRODUCTS MOLDER Office [facility] [address] [place] [address] Pancho Smith MD [address] [place] [address] Health Maintenance Due Date Last Done Comments Hepatitis C Virus (HCV) Screening 1975 TdaP Immunization 1975 02/11/2013 Hepatitis B Immunization (1 of 3 - 19+ 3-dose series) 11/29/1994 Cologuard 11/29/2020 Colonoscopy 11/29/2020 Colorectal Cancer Screening 11/29/2020 Immunochemical Fecal Occult Blood 11/29/2020 SARS-COV-2 Immunization ( season) 2024 10/23/2020, 10/02/2020 Influenza Immunization (Season Ended) 2025 03/13/2023, 04/26/2022, 05/31/2019, Additional history exists Respiratory Syncytial Virus (RSV) Immunization (Adult) (1 - 1-dose 75+ series) 11/29/2050 Human Papillomavirus (HPV) Immunization Aged Out No longer eligible based on patient's age to complete this topic Meningococcal Immunization (ACWY) Aged Out No longer eligible based on patient's age to complete this topic Pneumococcal Immunization Combined Aged Out 12/18/2019 No longer eligible based on patient's age to complete this topic Rotavirus Immunization Aged Out No lo nger eligible based on patient's age to complete this topic Insurance [place]NDEZ [id number] Care Teams Manager Radiation Relationship Specialty Start Date End Date Alexys Cooper, BULB GRADER, EQUIPMENT HIRE MANAGER [address] [place] [address] [place] [address] PCP - General Advanced Practice Nurse 03/11/24
--- OUTSIDE RECORDS SUMMARY | 2024-12-22 00:34 | XMS_ITS | Clinical Summary ---
Author Organization [facility] Address [address] [place] [address] Care Team Providers Care Marketing Officer Name Role Phone Jodi Diaz MD Primary Care Provider [phone] Source Comments [facility],non-owned Affiliates and Associated Physician Practices is amultiple site organization consisting of ambulatory clinics and hospital sitesin [place], [place], [place] and [place]. This disclosure is being madepursuant to the Care Everywhere program and may not contain all information available regarding this patient. Last updated 18.[facility] [employer] Allergies Active Allergy Reactions Criticality Noted Date Comments Erythromycin Unknown 11/28/2023 Medications * Be aware that medications may not be up to date on this document. Alwaysverify current medications with the patient. albuterol (Proventil;Vent franko) (2.5 MG/3ML) 0.083% nebulizer solution USE 1 VIAL IN NEBULIZER THREE TIMES DAILY NEEDED 4 Active QUEtiapine (SEROquel) 50 MG tablet 3 (three) tablets Active sertraline (Zoloft) 100 MG tablet TAKE 1 & 1/2 (ONE & ONE-HALF) TABLETS BY MOUTH ONCE DAILY Active montelukast (Singulair) 10 MG tablet TAKE 1 TABLET BY MOUTH ONCE DAILY DIRECTED FOR 90 DAYS 3 Active famotidine (Pepcid) 40 MG tablet Take 1 (one) tablet by mouth every evening 3 Active triamcinolone acetonide (Kenalog) 0.1 % cream APPLY A THIN LAYER TO THE AFFECTED AREAS OF BODY TWICE DAILY NEEDED FOR RASH 3 Active fluticasone propionate (Flonase) 50 MCG/ACT nasal spray [place] 2 (two) sprays into each nostril once daily Active Spiriva Respimat 2.5 MCG/ACT inhaler INHALE 2 SPRAY(S) BY MOUTH ONCE DAILY 12 g 3 4 Active albuterol HFA (Proventil; Ventolin; Proair) 108 (90 Base) MCG/ACT inhaler INHALE 2 PUFFS BY MOUTH EVERY 4 TO 6 HOURS 18 g 5 4 Active Dulera 200-5 MCG/ACT inhaler Inhale 2 (two) puffs by mouth 2 times daily 39 g 3 4 Active Social History Tobacco Use Types Packs/Day Years Used Date Smoking Tobacco: Every Day Cigarettes Passive Exposure Comments:Mccartney s been reducing and trying to quit. Sex and Gender Information Value Date Recorded Sex Assigned at Not on file Legal Sex Male 9:16 AM CDT Gender Identity Not on file Sexual Orientation Not on file Last Filed Vital Signs Vital Sign Reading Time Taken Comments Blood Pressure 150/80 11/28/2023 2:24 PM CDT Pulse 97 11/28/2023 2:24 PM CDT Temperature 36.5 C (97.7 F) 11/28/2023 2:24 PM CDT Respiratory Rate 12 11/28/2023 2:24 PM CDT Oxygen Saturation 97% 11/28/2023 2:24 PM CDT Inhaled Oxygen Concentration - - Weight 90.3 kg (199 lb) 11/28/2023 2:24 PM CDT Height 167.6 cm (5' 6) 11/28/2023 2:24 PM CDT Body Mass Index 32.12 11/28/2023 2:24 PM CDT Plan of Treatment Health Maintenance Due Date Last Done Comments COLOGUARD (AGES 45-75) - COLON CA SCREENING 1975 COLON MONITORING 1975 COLONOSCOPY - COLON CA SCREENING 1975 CT COLONOGRAPHY - COLON CA SCREENING 1975 Colorectal Cancer Screening 1975 FIT - COLON CA SCREENING 1975 FLEX SIG - COLON CA SCREENING 1975 LIPID TESTING 1975 HIV SCREENING 11/29/1990 HEPATITIS C SCREENING 11/25/1993 DTAP/TDAP/TD VACCINES (1 - Tdap) 11/29/1994 HEPATITIS B VACCINE (1 of 3 - 19+ 3-dose series) 11/29/1994 SCREENING FOR DIABETES 11/28/2023 COVID-19 VACCINE ( season) 2024 DEPRESSION SCREENING 07/08/2024 INFLUENZA VACCINE (Season Ended) 2025 03/13/2023, 04/26/2022, 04/20/2020, Additional history exists ZOSTER VACCINE (1 of 2) 11/29/2025 HIB VACCINE Aged Out No longer eligi ble based on patient's age to complete this topic HPV VACCINE Aged Out No longer eligi ble based on patient's age to complete this topic MENINGOCOCCAL (Group B) VACCINE SHARED DECISION-MAKING Aged Out No longer eligible based on patient's age to complete this topic MENINGOCOCCAL GROUPS A/C/Y/W VACCINE Aged Out No longer eligible based on patient's age to complete this topic Insurance [facility] Care Teams Marketing Officer Relationship Specialty Start Date End Date Jodi Diaz MD [address] [place] [address] [place] [address] PCP - General 05/04/21
[2024-12-22] MEDS: ACETAMINOPHEN 500 MG TABLET 1000 MG PO (00:53)
[2024-12-22] MEDS: SODIUM CHLORIDE 0.9% IV 1,000 ML 999 ML IV CONT (00:53)
[2024-12-22] MEDS: METOCLOPRAMIDE HCL INJ 10 MG/2 ML VIAL IV PUSH (00:53)
[2024-12-22] MEDS: diphenhydrAMINE HCl INJ 50 MG/ML VIAL 25 MG IV PUSH (00:53)
[2024-12-22 01:10] VITALS: BP 141/83; PULSE 95; RESP 16; O2SAT 98
[2024-12-22 01:40] VITALS: BP 140/89; PULSE 87; RESP 19; O2SAT 99
== END 2024-12-22 01:40 | disposition home or self-care (01) ==
PROVIDERS: Emergency Provider Physician Assistant; PCP Nurse Practitioner Family
DX: R51.9 Headache, unspecified (principal); J45.909 Unspecified asthma, uncomplicated; E66.9 Obesity, unspecified; Z68.37 Body mass index [BMI] 37.0-37.9, adult; F32.A Depression, unspecified; F41.9 Anxiety disorder, unspecified; Z87.891 Personal history of nicotine dependence; Z79.899 Other long term (current) drug therapy
CPT/HCPCS: 70450; 96361; 96374; 96375; 99284; A9270; J1200; J2765; J7030

== ENCOUNTER 2025-03-26 17:04 | Emergency (ER) | payer BC, SELFPAY ==
--- NOTE | ~2025-03-26 | XR_ITS ---
EXAMINATION: XR chest 2V, 03/26/2025 17:22 CDT HISTORY: dizziness x 5 days COMPARISON: No comparisons available. Technique: 2 views obtained. Findings: The lungs are clear, no effusion. No pneumothorax. Heart is normal size. Mediastinal and hilar contours are within normal limits. Bony thorax no acute abnormality. Impression: No acute cardiopulmonary abnormality. Reviewed, dictated and finalized at location A. Impression: No acute cardiopulmonary abnormality.
--- OUTSIDE RECORDS SUMMARY | 2025-03-26 17:05 | XMS_ITS | Clinical Summary ---
Author Organization [facility] Address [address] [place] [address] Care Team Providers Care Straight Edger Name Role Phone Jodi Diaz MD Primary Care Provider Source Comments [facility],non-owned Affiliates and Associated Physician Practices is amultiple site organization consisting of ambulatory clinics and hospital sitesin [place], [place], [place] and [place]. This disclosure is being madepursuant to the Care Everywhere program and may not contain all information available regarding this patient. Last updated 18.[facility] [employer] Allergies Active Allergy Reactions Criticality Noted Date [...] fluticasone propionate (Flonase) 50 MCG/ACT nasal spray [place] 2 (two) sprays into each nostril once [...] times daily 39 g 3 4 Active Encounters Date Type Department Care Team Description 03/08/2025 Refill [facility] - Pulmonology [address] [place] [address] Augustin Sales MD Refill Request 02/20/2025 Refill [facility] [address] [place] [address] Augustin Sales MD Refill Request from Last 3 Months Social History Tobacco Use Types Packs/Day Years [...] 3-dose series) 11/29/1994 SCREENING FOR DIABETES 11/28/2023 DEPRESSION SCREENING 07/08/2024 COVID-19 VACCINE (1 - season) 2025 INFLUENZA VACCINE (#1) 2025 , 04/26/2022, 04/20/2020, Additional history exists ZOSTER VACCINE [...] patient's age to complete this topic Insurance [employer] Care Teams Straight Edger Relationship Specialty Start Date End Date Jodi Diaz MD [address] [place] [address] [place] [id number] [facility] - General 05/04/21
--- OUTSIDE RECORDS SUMMARY | 2025-03-26 17:05 | XMS_ITS | Clinical Summary ---
Author Organization [facility] Address [address] [place] [address] Phone Care Team Providers Care Specimen Boss Name Role Phone Alexys Cooper APRN, SOFTBALL WINDER Primary Care Provider Allergies Active Allergy Reactions [...] 90 DAYS 4 Active ergocalciferol (VITAMIN D) 28807 UNIT Capsule take 1 capsule by mouth [...] Upcoming Encounters Date Type Department Care Team ([facility] st Contact Info) Description 07/13/2025 3:00 PM SUPERVISOR STAGE CARPENTRY Office Visit [facility] [address] [place] [address] Pancho Smith MD [address] [place] [address] Health Maintenance Due Date Last Done Comments Hepatitis C Virus (HCV) Screening 1975 Hepatitis B Immunization (1 of 3 - 19+ 3-dose series) 11/29/1994 Cologuard 11/29/2020 Colonoscopy 11/29/2020 Colorectal Cancer Screening 11/29/2020 Immunochemical Fecal Occult Blood 11/29/2020 SARS-COV-2 Immunization ( season) 2024 10/23/2020, 10/02/2020 Influenza Immunization (#1) 2025 09/12/2022, 04/26/2022, 05/31/2019, Additional history exists Respiratory Syncytial Virus (RSV) Immunization (Adult) (1 - 1-dose 75+ series) 11/29/2050 TdaP Immunization Completed 02/11/2013 Pneumococcal Immunization Combined Aged Out 12/18/2019 No longer eligible based on patient's age to complete this topic Human Papillomavirus (HPV) Immunization Aged Out No longer eligible based on patient's age to complete this topic Meningococcal Immunization (ACWY) Aged Out No longer eligible based on patient's age to complete this topic Rotavirus Immunization Aged Out No lo nger eligible based on patient's age to complete this topic Insurance MEDICAID [place] Care Teams Specimen Boss Relationship Specialty Start Date End Date Alexys Cooper, SILO FILLER, SOFTBALL WINDER [address] [place] [address] [place] [address] PCP - General Advanced Practice Nurse 03/11/24
--- OUTSIDE RECORDS SUMMARY | 2025-03-26 17:05 | XMS_ITS | Clinical Summary ---
Author Organization [facility] Address [facility] [place] [address] Care Team Providers Care Training And Development Rep Name Role Phone Unavailable Primary Care Provider Unavailabl e Social History Tobacco Use Types Packs/Day Years Used Date Smoking Tobacco: Never Assessed Sex and Gender Information Value Date Recorded Sex Assigned at Not on file Legal Sex Male 5:24 PM CDT Gender Identity Not on file Sexual Orientation Not on file Plan of Treatment Health Maintenance Due Date Last Done Comments Colorectal Cancer Screening Colonoscopy (10 Years) 1975 Annual Physical 11/29/1978 Hepatitis C 11/29/1993 DTaP, Tdap and Td Vaccines ( 1 - Tdap) 11/29/1994 Hepatitis B Vaccines (1 of 3 - 19+ 3-dose series) 11/29/1994 COVID-19 Vaccine ( - 2023-2 5 season) 2025 Meningococcal B Vaccine Aged Out No l onger eligible based on patient's age to complete this topic Meningococcal Vaccine Aged Out No jojo florian eligible based on patient's age to complete this topic Pneumococcal Vaccine: Pediat rics (0 to 5 Years) and At-Risk Patients (6 to 49 Years) Aged Out No longer eligible b ased on patient's age to complete this topic RSV Immunizations Under 20 Months Aged Out No longer eligible based on patient's age to complete this topic
--- NOTE | 2025-03-26 17:06 | ECG_ITS ---
Test Date: 2025-03-26 17:23:21 Measurements Intervals [place] Rate: 107 P: 42 TN: 136 QRS: 52 QRSD: 84 T: 17 QT: 327 QTc: 436 Interpretive Statements SINUS TACHYCARDIA NONSPECIFIC T-WAVE ABNORMALITY ABNORMAL RHYTHM ECG No previous ECG available for comparison Electronically Signed On 03-27-2025 08:34:18 CDT by Elias Ferreira M.D.
[2025-03-26 17:12] VITALS: BP 148/103; PULSE 119; RESP 16; TEMP 36.4; O2SAT 100
[2025-03-26 17:35] LABS: Hematocrit 42.2 % (42.0-52.0); Hemoglobin 14.1 g/dL (14.0-18.0); Immature Granulocyte Percent A 0.4 % (0-0.5); Lymphocytes Absolute Auto 1.59 K/mm3 (0.9-3.2); Mean Corpuscular HGB Conc 33.4 g/dl (32-36); Mean Corpuscular Hemoglobin 26.5 pg (26-34); Mean Corpuscular Volume 79.3 fl (80-100); Nucleated Red Blood Cells Absolute Auto 0.000 K/mm3 (0.0-0.012); Nucleated Red Blood Cells Perc 0.0 % (0.0-0.2); Platelet Count Result 191 k/mm3 (150-375); Red Blood Count 5.32 M/mm3 (4.6-6.20); White Blood Count 8.4 K/mm3 (4.5-10.0)
[2025-03-26 17:47] LABS: Alanine Aminotransferase 18 U/L (6-50); Albumin Level 4.3 g/dL (3.5-5.1); Alkaline Phosphatase 125 U/L (38-126); Anion Gap 10 mmol/L (4-12); Aspartate Amino Transferase 21 U/L (17-59); Bilirubin,Total 0.4 mg/dL (0.2-1.3); Blood Urea Nitrogen 12 mg/dL (9-20); Calcium 8.8 mg/dL (8.4-10.2); Carbon Dioxide 22 mmol/L (22-30); Chloride 108 mmol/L (98-107); Estimated CRCL calculation 73 ml/min; Estimated Glomerular Filt Rate > 60; Glucose 119 mg/dL (65-110); Potassium 3.3 mmol/L (3.4-5.0); Sodium 140 mmol/L (137-145); Total Protein 7.9 g/dL (6.3-8.2)
[2025-03-26 18:23] VITALS: BP 131/90; PULSE 102
[2025-03-26 18:25] VITALS: BP 139/94; PULSE 110
[2025-03-26 18:28] VITALS: BP 135/89; PULSE 108; RESP 17; O2SAT 98
[2025-03-26 19:13] VITALS: PULSE 98
--- NOTE | 2025-03-26 19:14 | PC.NURSE ---
This RN received report by Skyla BOYCE at 1910.
[2025-03-26] MEDS: ONDANSETRON HCL ODT 4 MG TABLET PO (19:37)
[2025-03-26] MEDS: MECLIZINE HCL 25 MG TABLET PO (19:37)
--- OUTSIDE RECORDS SUMMARY | 2025-03-26 19:41 | XMS_ITS | Clinical Summary ---
Author Organization [facility] Address [address] [place] [address] Phone Care Team Providers Care Inside Outside Sales Representative Name Role Phone Alexys Cooper APRN, LICENSE REGISTRATION EXAMINER Primary Care Provider Allergies Active Allergy Reactions [...] 90 DAYS 4 Active ergocalciferol (VITAMIN D) 04837 UNIT Capsule take 1 capsule by mouth [...] Upcoming Encounters Date Type Department Care Team ([facility] st Contact Info) Description 07/13/2025 3:00 PM REMNANTS CUTTER Office Visit [facility] [address] [place] [address] Pancho Smith MD [address] [place] [address] Health Maintenance Due Date Last Done Comments [...] Insurance [place]ICA[place] Care Teams Inside Outside Sales Representative Relationship Specialty Start Date End Date Alexys Cooper, GLASS INSERTER, LICENSE REGISTRATION EXAMINER [address] [place] [address] [place] [address] PCP - General Advanced Practice Nurse 03/11/24
--- OUTSIDE RECORDS SUMMARY | 2025-03-26 19:41 | XMS_ITS | Clinical Summary ---
Author Organization [facility] Address [address] [facility] [place] [address] Care Team Providers Care Apparel Designer Name Role Phone Jodi Diaz MD Primary Care Provider [phone] Source Comments [facility],non-owned Affiliates and Associated Physician Practices is amultiple site organization consisting of ambulatory clinics and hospital sitesin [place], [place], [place] and [place]. This disclosure is being madepursuant to the Care Everywhere program and may not contain all information available regarding this patient. Last updated 18.[facility] Allergies Active Allergy Reactions Criticality Noted Date [...] fluticasone propionate (Flonase) 50 MCG/ACT nasal spray [place] 2 (two) sprays into each nostril once [...] Type Department Care Team Description 03/08/2025 Refill [facility] - Pulmonology [address] [facility], [address] [place] [address] Augustin Sales MD Refill Request 02/20/2025 Refill [facility] Pulmonology [address] [facility], [address] [place] [address] Augustin Sales MD Refill Request from Last [...] complete this topic Insurance [employer]ILE Care Teams Apparel Designer Relationship Specialty Start Date End Date Jodi Diaz MD [address] [place] [address] [place] [id number] [facility] - General 05/04/21
--- OUTSIDE RECORDS SUMMARY | 2025-03-26 19:41 | XMS_ITS | Clinical Summary ---
Author Organization [facility] Address [facility] [place] [address] Care Team Providers Care Corporate Fitness Program Coordinator Name Role Phone Unavailable Primary Care Provider [...]
[2025-03-26] MEDS: METOCLOPRAMIDE HCL INJ 10 MG/2 ML VIAL IM (20:20)
[2025-03-26] MEDS: KETOROLAC 10 MG TABLET PO (20:20)
[2025-03-26 20:49] VITALS: BP 142/55; PULSE 94; RESP 17; O2SAT 98
--- NOTE | 2025-03-27 01:01 | ED.DIZZY ---
HPI - Dizziness General Chief Complaint: Dizziness Stated Complaint: dizziness x 5 days Time Seen by Provider: 03/26/25 19:03 History of Present Illness HPI Narrative: For last 5 days, patient has had an intermittent migraine, with history of migraines, and a sensation of the room spinning around him any time he tries to stand up or in certain positions of his head. He has had these episodes in the past, they generally resolve on their own, associated with some nausea. He is on Topamax for migraines and unsure if this is related to her recent dosage change. Also history of tinnitus and inner ear infections. Related Data Home Medications ?Medication ?Instructions ?Recorded ?Confirmed ?Last Taken ?Type albuterol 90 mcg/actuation aerosol 90 mcg inhalation PRN PRN Dyspnea 04/17/21 09/20/21 Unknown History inhaler montelukast 10 mg tablet 10 mg PO DAILY 04/17/21 09/20/21 05/01/21 History paroxetine HCl 20 mg tablet 20 mg PO DAILY 04/17/21 09/20/21 05/01/21 History famotidine 40 mg tablet 40 mg PO DAILY 09/15/21 09/20/21 Unknown History mometasone-formoterol HFA 200 2 puff inhalation BID 09/15/21 09/20/21 Unknown History mcg-5 mcg/actuation aerosol inhaler (Dulera) Allergies Allergy/AdvReac Type Severity Reaction Status Date / Time erythromycin base Allergy Unknown Gastrointestinal Verified 09/20/21 09:15 Upset nickel Allergy Unknown Rash Verified 12/21/24 23:46 Review of Systems Review of Systems: All systems reviewed & are unremarkable except as noted in HPI and below PMFSH Past Medical History Medical History Anxiety Asthma Colon cancer screening Depression Obesity Surgical History Surgical History Inguinal hernia 2005 Family History Family History Other Bladder cancer Cancer Cerebrovascular accident Diabetes mellitus Heart disease Hypertension Social History Social History Smoking packs per day: 1 Smoking cigarettes per day: 20.0 Years smoked: 20 Smoking pack-years: 20.00 Smoking status: Former smoker Tobacco type: cigarettes Alcohol intake: never Substance use: never Substance use type: does not use Living arrangements: alone Occupation/Education: occupation Additional occupation/education comments: [employer] Spiritual care concerns: No Exam Narrative: EXAMINATION OF ORGAN SYSTEMS/BODY AREAS: Constitutional: Vital signs per nursing GENERAL: Appears slightly uncomfortable, holding head very still HEAD: Normal with no signs of head trauma. EYES: EOMI, conjunctiva normal, very slight nystagmus ENT: Right TM normal. Left TM bulging with surrounding erythema LUNGS: Nonlabored breathing. HEART: [Regular rate and rhythm] ABD: [Soft], [nontender to palpation] EXT: Normal range of motion SKIN: [No rashes or lesions.] NEURO: [Alert and oriented x 3. No gross focal sensory or strength deficits.] With clear speech, no facial droop. PSYCH: Normal affect Course Vital Signs Vital signs: Vital Signs Temperature 97.6 F 03/26/25 17:12 Pulse Rate 119 H 03/26/25 17:12 Respiratory Rate 16 03/26/25 17:12 Blood Pressure 148/103 H 03/26/25 17:12 Pulse Oximetry 100 03/26/25 17:12 Oxygen Delivery Room Air 03/26/25 17:12 Temperature 97.6 F 03/26/25 17:12 Pulse Rate 94 03/26/25 20:49 Respiratory Rate 17 03/26/25 20:49 Blood Pressure 142/55 H 03/26/25 20:49 Pulse Oximetry 98 03/26/25 20:49 Oxygen Delivery Room Air 03/26/25 17:12 MDM - Dizziness MDM Narrative Medical decision making narrative: Patient presenting here with dizziness, also a slight headache that feels similar to his migraines. On exam he appears slightly uncomfortable, whole his head quite still, on examination of his ears his right TM is normal the left TM is quite swollen, bulging, with erythema I suspect possible sinus infection with ear infection, will start him on antibiotics, I have low concern for central cause of his vertigo since it seems entirely positional. A nerve his neuro exam is also normal. I will trial medications here with meclizine and Zofran, and on re-evaluation his nausea has subsided, his dizziness is improved, he still has a slight headache. Additional dose of Reglan and Toradol given and on re-evaluation, symptoms had completely resolved. He feels better, he is looking much more comfortable, he is moving around without issue, he would like to go home at this time and he already has follow-up with a neurologist scheduled. He is ambulating with normal steady gait, I did provide prescriptions for symptomatic treatment and I let him know he can return to the ER if his symptoms return. Patient agreeable to plan Lab Data 03/26/25 17:30 03/26/25 17:30 Labs: Lab Results 03/26/25 Range/Units 17:30 WBC 8.4 (4.5-10.0) K/mm3 RBC 5.32 (4.6-6.20) M/mm3 Hgb 14.1 (14.0-18.0) g/dL Hct 42.2 (42.0-52.0) % MCV 79.3 L (80-100) fl MCH 26.5 (26-34) pg MCHC 33.4 (32-36) g/dl RDW 14.2 (11.5-14.5) % Plt Count 191 (150-375) k/mm3 MPV 9.3 (7.4-10.4) fl Immature Gran % (Auto) 0.4 (0-0.5) % Neut % (Auto) 72.1 (45.5-73.1) % Lymph % (Auto) 18.9 (18.3-44.2) % [place] % (Auto) 6.1 (2.6-8.5) % Eos % (Auto) 2.1 (0-4.4) % Baso % (Auto) 0.4 (0.2-1.2) % Lymph # (Auto) 1.59 (0.9-3.2) K/mm3 [place] # (Auto) 0.5 (0.1-0.6) K/mm3 Eos # (Auto) 0.2 (0-0.3) K/mm3 Baso # (Auto) 0.0 (0.0-0.1) K/mm3 Abs Immat Gran (auto) 0.03 (0.00-0.031) K/mm3 Absolute Neuts (auto) 6.1 (1.3-6.7) K/mm3 Absolute Nucleated RBC 0.000 (0.0-0.012) K/mm3 Nucleated RBC % 0.0 (0.0-0.2) % Sodium 140 (137-145) mmol/L Potassium 3.3 L (3.4-5.0) mmol/L Chloride 108 H (98-107) mmol/L Carbon Dioxide 22 (22-30) mmol/L Anion Gap 10 (4-12) mmol/L BUN 12 (9-20) mg/dL Creatinine 1.23 (0.7-1.3) mg/dL Estim Creat Clear Calc 73 ml/min Estimated GFR > 60 (59 - ) Glucose 119 H (65-110) mg/dL Calcium 8.8 (8.4-10.2) mg/dL Total Bilirubin 0.4 (0.2-1.3) mg/dL AST 21 (17-59) U/L ALT 18 (6-50) U/L Alkaline Phosphatase 125 (38-126) U/L Total Protein 7.9 (6.3-8.2) g/dL Albumin 4.3 (3.5-5.1) g/dL Discharge Plan Discharge Clinical Impression: Benign paroxysmal positional vertigo Patient Disposition: Home Condition: Stable Instructions: Antibiotic Form, Vertigo (ED), Ear Infection (ED) Additional Instructions: Please follow up with your neurologist as scheduled; try the meds as prescribed and you can always return to the ER for any further issues. Patient Language: Greenlandic Prescriptions: New fluticasone propionate [Allergy Relief (fluticasone)] 50 mcg/actuation spray,suspension 1 spray intranasal DAILY Qty: 16 0RF Rx Instructions: administer into each nostril amoxicillin-pot clavulanate 875-125 mg tablet 1 tablet PO Q12H Qty: 14 0RF meclizine 25 mg tablet 25 mg PO BID PRN (Reason: dizziness) Qty: 30 0RF ondansetron 4 mg tablet,disintegrating 4 mg PO Q8H PRN (Reason: nausea and vomiting) Qty: 10 0RF No Action Dulera 200-5 mcg/actuation HFA aerosol inhaler 2 puff inhalation BID famotidine 40 mg tablet 40 mg PO DAILY paroxetine HCl 20 mg tablet 20 mg PO DAILY montelukast 10 mg tablet 10 mg PO DAILY Ventolin 90 mcg/actuation Aerosol 90 mcg INHALATION PRN PRN (Reason: Dyspnea) hydroxyzine HCl 50 mg tablet 50 mg PO BID PRN (Reason: anxiety) Qty: 14 0RF prednisone 20 mg tablet 40 mg PO DAILY 5 Days Qty: 10 0RF Follow-up/Referrals: Florencio,Barbara Pearce LEGAL ASSOCIATE [Primary Care Provider, Unknown]
== END 2025-03-26 20:48 | disposition home or self-care (01) ==
PROVIDERS: Emergency Medicine; Emergency Provider Emergency Medicine; PCP Nurse Practitioner Family
DX: H81.10 Benign paroxysmal vertigo, unspecified ear (principal); Z87.891 Personal history of nicotine dependence
CPT/HCPCS: 36415; 71046; 80053; 85025; 93005; 96372; 99284; A9270; J2765